=== PATIENT | male | born 1935 | race Caucasian/White ===

== ENCOUNTER 2016-05-02 07:55 | Outpatient (CLI) ==
[2015-03-19 15:30] VITALS: BMI 27.1
--- NOTE | 2016-05-02 09:29 | CT ---
EXAM: CT chest without contrast. HISTORY: Cough, chest congestion. COMPARISON: Radiograph 03/30/2015. TECHNIQUE: Multiple axial images of the chest were obtained without intravenous contrast. Images w ere reformatted in the sagittal and coronal planes. FINDINGS: Evaluation for lymphadenopathy is limited due to lack of intravenous contrast. Heart siz e is normal. Atherosclerotic calcifications present. No pericardial effusion identified. The lungs are grossly clear save for subsegmental atelectasis in the left lower lobe. No pleural ef fusion or pneumothorax identified. There is a large hiatal hernia. Gastroesophageal junction appears to be in normal position. There is no upstream dilatation. Limited images of the upper abdomen only partially included a 12.7 x 9.4 cm low density mass arising off the right kidney. Diverticuli seen in the colon. Degenerative andrade nges seen in the spine. IMPRESSION: 1. No acute abnormality of the chest. 2. Large hiatal hernia. 3. Large right renal cystic mass. Correlation with ultrasound recommended.
== END 2016-05-02 07:56 | disposition home or self-care (01) ==
LOC: RAD 07:55
PROVIDERS: ATTEND General Practice
DX: R05 Cough (principal); R06.02 Shortness of breath

== ENCOUNTER 2016-05-30 08:37 | Outpatient (CLI) ==
[2015-03-19 15:30] VITALS: BMI 27.1
[2016-05-30 09:35] LABS: BASOPHILS % (AUTO) 0.5 % (0.0-3.0); EOSINOPHILS # (AUTO) 0.2 K/ul (0.0-0.7); EOSINOPHILS % (AUTO) 5.5 % (0.0-7.0); HEMATOCRIT 37.8 % (42.0-52.0); IMMATURE GRANULOCYTE % (AUTO) 0.3 % (0.0-5.0); LYMPHOCYTES # (AUTO) 1.4 K/uL (0.60-3.4); LYMPHOCYTES % (AUTO) 34.3 (10.0-50.0); MEAN CORPUSCULAR HEMOGLOBIN 33.1 pg (27.0-31.0); MEAN CORPUSCULAR HGB CONC 34.4 (31.8-35.4); MEAN CORPUSCULAR VOLUME 96.2 fl (80.0-94.0); MONOCYTES # (AUTO) 0.3 K/uL (0.4-2.0); MONOCYTES % (AUTO) 6.8 (0-10); NEUTROPHILS # (AUTO) 2.1 K/ul (2.0-6.9); NEUTROPHILS % (AUTO) 52.6; PLATELET COUNT 142 10^3/uL (140-440); RED BLOOD COUNT 3.93 10^6/ul (4.70-6.10); WHITE BLOOD COUNT 3.99 K/ul (4.2-10.2)
[2016-05-30 09:40] LABS: BILIRUBIN,URINE Negative (NEGATIVE); KETONES,URINE Negative (NEGATIVE); LEUKOCYTE ESTERASE ,URINE Trace (NEGATIVE); NITRITE,URINE Negative (NEGATIVE); PH,URINE 5.5 (5-9); PROTEIN,URINE Negative (NEGATIVE); URINE, BLOOD Negative (NEGATIVE)
[2016-05-30 09:53] LABS: ADD URINE MICROSCOPIC YES
[2016-05-30 09:54] LABS: BACTERIA,URINE TRACE (NOT PRESENT); SPERM,URINE TRACE (NOT PRESENT)
[2016-05-30 09:56] LABS: ALBUMIN 3.7 g/dL (3.4-5.0); ALBUMIN/GLOBULIN RATIO 1.12; ANION GAP 12.3; BILIRUBIN,TOTAL 0.87 mg/dL (0.00-1.20); BUN/CREATININE RATIO 11.62; CALCIUM 9.1 mg/dL (8.2-10.2); CHOL/HDL RATIO 2.7 (4.5-6.4); CREATININE 0.86 mg/dL (0.60-1.10); POTASSIUM 4.3 mmol/L (3.5-5.1)
== END 2016-05-30 08:38 | disposition home or self-care (01) ==
LOC: LAB 08:37
PROVIDERS: ATTEND General Practice
DX: D51.9 Vitamin B12 deficiency anemia, unspecified (principal); I10 Essential (primary) hypertension; K21.9 Gastro-esophageal reflux disease without esophagitis; N40.0 Benign prostatic hyperplasia without lower urinary tract symptoms; G47.00 Insomnia, unspecified; K59.00 Constipation, unspecified; Z79.899 Other long term (current) drug therapy
CPT/HCPCS: 36415; 80053; 80061; 81001; 85025

== ENCOUNTER 2016-10-02 10:41 | Outpatient (CLI) | payer OTHER ==
[2015-03-19 15:30] VITALS: BMI 27.1
[2016-10-02 13:04] LABS: BASOPHILS % (AUTO) 0.5 % (0.0-3.0); EOSINOPHILS # (AUTO) 0.2 K/ul (0.0-0.7); EOSINOPHILS % (AUTO) 4.3 % (0.0-7.0); HEMATOCRIT 36.3 % (42.0-52.0); HEMOGLOBIN 12.4 g/dl (14.0-18.0); IMMATURE GRANULOCYTE % (AUTO) 0.2 % (0.0-5.0); LYMPHOCYTES # (AUTO) 1.6 K/uL (0.60-3.4); LYMPHOCYTES % (AUTO) 38.4 (10.0-50.0); MEAN CORPUSCULAR HEMOGLOBIN 33.9 pg (27.0-31.0); MEAN CORPUSCULAR HGB CONC 34.2 (31.8-35.4); MEAN CORPUSCULAR VOLUME 99.2 fl (80.0-94.0); MONOCYTES # (AUTO) 0.3 K/uL (0.4-2.0); NEUTROPHILS % (AUTO) 48.6; PLATELET COUNT 175 10^3/uL (140-440); RED BLOOD COUNT 3.66 10^6/ul (4.70-6.10); WHITE BLOOD COUNT 4.14 K/ul (4.2-10.2)
[2016-10-02 13:19] LABS: ALBUMIN 3.7 g/dL (3.4-5.0); ALBUMIN/GLOBULIN RATIO 1.19; ANION GAP 11.9; BILIRUBIN,TOTAL 0.97 mg/dL (0.00-1.20); BUN/CREATININE RATIO 23.25; CALCIUM 8.7 mg/dL (8.2-10.2); CHOL/HDL RATIO 2.5 (4.5-6.4); CREATININE 0.86 mg/dL (0.60-1.10); POTASSIUM 3.9 mmol/L (3.5-5.1); TOTAL PROTEIN 6.8 g/dL (5.8-8.1)
[2016-10-02 13:28] LABS: BILIRUBIN,URINE Negative (NEGATIVE); KETONES,URINE Negative (NEGATIVE); LEUKOCYTE ESTERASE ,URINE Negative (NEGATIVE); NITRITE,URINE Negative (NEGATIVE); PROTEIN,URINE Negative (NEGATIVE); URINE, BLOOD Negative (NEGATIVE)
[2016-10-02 13:33] LABS: ADD URINE MICROSCOPIC NO
== END 2016-10-02 10:42 | disposition home or self-care (01) ==
LOC: LAB 10:41
PROVIDERS: ATTEND General Practice
DX: I10 Essential (primary) hypertension (principal); N40.0 Benign prostatic hyperplasia without lower urinary tract symptoms; K21.9 Gastro-esophageal reflux disease without esophagitis; D51.9 Vitamin B12 deficiency anemia, unspecified; Z79.899 Other long term (current) drug therapy; Z12.5 Encounter for screening for malignant neoplasm of prostate
CPT/HCPCS: 36415; 80053; 80061; 81001; 85025

== ENCOUNTER 2016-11-21 06:57 | Day surgery (SDC) ==
[2015-03-19 15:30] VITALS: BMI 27.1
[2016-11-21] MEDS ORDERED: LIDOCAINE 1% 20 ML MDV ID ONE (07:15)
[2016-11-21] MEDS ORDERED: VERSED ONE (08:31)
[2016-11-21] MEDS ORDERED: LIDOCAINE HCL 2% LUER-JET ONE (08:31)
[2016-11-21] MEDS ORDERED: DIPRIVAN 20 ML VIAL IVP ONE (08:31)
[2016-11-21 10:03] VITALS: BP 129/75; TEMP 97.6
--- NOTE | 2016-11-21 14:39 | OP ---
INDICATIONS FOR PROCEDURE: This is an 81-year-old gentleman who presents for endoscopy exam. He has a worsening anemia. He has a mild anemia that is gradually getting worse. He denies any symptoms of blood loss anemia. MEDICATIONS: SEE ANESTHESIA NOTES. PROCEDURE: ENDOSCOPY, [place] DILATATION. REPORT: The risks, benefits, alternatives and limitations were discussed in detail with the patient. Informed consent was obtained. After adequate sedation was achieved, the video endoscope was introduced in the posterior pharynx and esophagus under direct vision. I easily advanced down to the second portion of the duodenum. I then slowly withdrew. The duodenal mucosa appeared unremarkable as did the duodenal bulb. The antrum and body were relatively unremarkable. The scope was retroflexed to look at the cardia and fundus which revealed a large hiatal hernia. About one-fourth of the stomach was above the diaphragmatic hiatus. The scope was anteflexed and withdrawn back in the hernia pouch, which was unremarkable. I withdrew back through the esophagus. The GE junction revealed mild stricturing. The esophagus was a little tortuous otherwise unremarkable. I advanced the scope back down the gastric lumen. I placed a guidewire. I then slowly and easily advanced a #54 [place] dilator over the guidewire. The patient tolerated the procedure well with stable vital signs and pulse oximetry throughout. IMPRESSION: 1. LARGE HIATAL HERNIA. 2. DISTAL ESOPHAGEAL STRICTURE DILATED ABOVE. 3. NOTHING TO ACCOUNT FOR HIS ANEMIA. RECOMMENDATIONS: 1. I will discuss with him about pursuing a colonoscopy examination. 2. Reflux precautions. 3. Office visit as needed otherwise. CC: DR. SHARATH TOLEDO
== END 2016-11-21 09:55 | disposition home or self-care (01) ==
LOC: SURG 06:57
PROVIDERS: ATTEND Internal Medicine Gastroenterology
DX: D64.9 Anemia, unspecified (principal); K22.2 Esophageal obstruction; K44.9 Diaphragmatic hernia without obstruction or gangrene

== ENCOUNTER 2017-01-29 12:53 | Outpatient (CLI) ==
[2015-03-19 15:30] VITALS: BMI 27.1
[2017-01-29 13:06] LABS: BASOPHILS % (AUTO) 0.5 % (0.0-3.0); EOSINOPHILS # (AUTO) 0.2 K/ul (0.0-0.7); EOSINOPHILS % (AUTO) 5.8 % (0.0-7.0); HEMATOCRIT 36.9 % (42.0-52.0); HEMOGLOBIN 12.5 g/dl (14.0-18.0); IMMATURE GRANULOCYTE % (AUTO) 0.3 % (0.0-5.0); LYMPHOCYTES # (AUTO) 1.3 K/uL (0.60-3.4); LYMPHOCYTES % (AUTO) 32.8 (10.0-50.0); MEAN CORPUSCULAR HEMOGLOBIN 33.6 pg (27.0-31.0); MEAN CORPUSCULAR HGB CONC 33.9 (31.8-35.4); MEAN CORPUSCULAR VOLUME 99.2 fl (80.0-94.0); MONOCYTES # (AUTO) 0.3 K/uL (0.4-2.0); MONOCYTES % (AUTO) 7.8 (0-10); NEUTROPHILS # (AUTO) 2.1 K/ul (2.0-6.9); NEUTROPHILS % (AUTO) 52.8; PLATELET COUNT 170 10^3/uL (140-440); RED BLOOD COUNT 3.72 10^6/ul (4.70-6.10); WHITE BLOOD COUNT 3.99 K/ul (4.2-10.2)
[2017-01-29 13:19] LABS: ALBUMIN 3.4 g/dL (3.4-5.0); ALBUMIN/GLOBULIN RATIO 1.06; ANION GAP 9.1; BILIRUBIN,TOTAL 0.95 mg/dL (0.00-1.20); BUN/CREATININE RATIO 17.02; CALCIUM 9.3 mg/dL (8.2-10.2); CHOL/HDL RATIO 2.4 (4.5-6.4); CREATININE 0.94 mg/dL (0.60-1.10); POTASSIUM 4.1 mmol/L (3.5-5.1); TOTAL PROTEIN 6.6 g/dL (5.8-8.1)
[2017-01-29 13:29] LABS: BILIRUBIN,URINE Negative (NEGATIVE); KETONES,URINE Negative (NEGATIVE); LEUKOCYTE ESTERASE ,URINE Negative (NEGATIVE); NITRITE,URINE Negative (NEGATIVE); PROTEIN,URINE Negative (NEGATIVE); URINE, BLOOD Negative (NEGATIVE)
[2017-01-29 13:33] LABS: ADD URINE MICROSCOPIC NO
== END 2017-01-29 12:54 | disposition home or self-care (01) ==
LOC: LAB 12:53
PROVIDERS: ATTEND General Practice
DX: D51.9 Vitamin B12 deficiency anemia, unspecified (principal); I10 Essential (primary) hypertension; N40.0 Benign prostatic hyperplasia without lower urinary tract symptoms; N28.89 Other specified disorders of kidney and ureter; K21.9 Gastro-esophageal reflux disease without esophagitis; G47.00 Insomnia, unspecified; J30.2 Other seasonal allergic rhinitis; K59.00 Constipation, unspecified; R25.2 Cramp and spasm
CPT/HCPCS: 36415; 80053; 80061; 81001; 82607; 85025

== ENCOUNTER 2017-02-13 08:12 | Day surgery (SDC) | payer OTHER ==
[2015-03-19 15:30] VITALS: BMI 27.1
[2017-02-13] MEDS ORDERED: ALBUTEROL 0.083% NEB NEB STA (10:39)
[2017-02-13] MEDS ORDERED: DIPRIVAN 20 ML VIAL IVP ONE (11:46)
[2017-02-13] MEDS ORDERED: VERSED ONE (11:46)
[2017-02-13 14:04] VITALS: BP 122/66; TEMP 97
--- NOTE | 2017-02-14 10:57 | OP ---
INDICATIONS FOR PROCEDURE: 82 year old gentleman presents for colonoscopy exam. He has a past history of adenomatous polyps and colonoscopy greater than three years ago. He recently was found to be anemic. He presents for colonoscopy. MEDICATIONS: SEE ANESTHESIA NOTES. PROCEDURE: COLONOSCOPY SNARE POLYPECTOMY. REPORT: The risks, benefits, alternatives and limitations were discussed in detail with the patient. Informed consent was obtained. After adequate sedation was achieved, a digital rectal exam revealed good tone, no masses. The colonoscope was introduced into the rectum and advanced under direct visual guidance to the cecum. The cecum was identified by the appendiceal orifice and IC valve. I then slowly withdrew the scope in circumferential manner and examined the mucosa quite carefully. I looked on the proximal and distal sides of the folds and flexures as best as possible. He has moderate melanosis coli throughout. In the hepatic flexure are there is a 5-6mm sessile polyp that I removed by snare technique. No other abnormalities were noted throughout the colon including on retroflex view of the anal canal. The prep was good. Withdraw time was 7 minutes and 47 seconds. The patient tolerated the procedure well with stable vital signs and pulse oximetry throughout. IMPRESSION: 1. Small polyp removed. 2. Melanosis coli RECOMMENDATIONS: 1. High fiber diet 2. Office visit as needed 3. Await polyp pathology 4. I suggest future surveillance colonoscopy on an as needed only basis. CC: Dr. Rell TOLEDO
== END 2017-02-13 13:35 | disposition home or self-care (01) ==
LOC: SURG 08:12
PROVIDERS: ATTEND Internal Medicine Gastroenterology
DX: Z09 Encounter for follow-up examination after completed treatment for conditions other than malignant neoplasm (principal); Z86.010 Personal history of colon polyps; D12.3 Benign neoplasm of transverse colon; D64.9 Anemia, unspecified; K63.89 Other specified diseases of intestine
CPT/HCPCS: 94640

== ENCOUNTER 2017-02-19 12:43 | Outpatient (CLI) ==
[2015-03-19 15:30] VITALS: BMI 27.1
[2017-02-19 12:51] LABS: BASOPHILS % (AUTO) 0.2 % (0.0-3.0); EOSINOPHILS # (AUTO) 0.2 K/ul (0.0-0.7); HEMATOCRIT 36.8 % (42.0-52.0); HEMOGLOBIN 12.6 g/dl (14.0-18.0); LYMPHOCYTES # (AUTO) 1.4 K/uL (0.60-3.4); LYMPHOCYTES % (AUTO) 33.5 (10.0-50.0); MEAN CORPUSCULAR HEMOGLOBIN 34.3 pg (27.0-31.0); MEAN CORPUSCULAR HGB CONC 34.2 (31.8-35.4); MEAN CORPUSCULAR VOLUME 100.3 fl (80.0-94.0); MONOCYTES # (AUTO) 0.4 K/uL (0.4-2.0); MONOCYTES % (AUTO) 8.8 (0-10); NEUTROPHILS # (AUTO) 2.2 K/ul (2.0-6.9); NEUTROPHILS % (AUTO) 52.5; PLATELET COUNT 172 10^3/uL (140-440); RED BLOOD COUNT 3.67 10^6/ul (4.70-6.10); WHITE BLOOD COUNT 4.21 K/ul (4.2-10.2)
[2017-02-19 12:53] LABS: BILIRUBIN,URINE Negative (NEGATIVE); KETONES,URINE Negative (NEGATIVE); LEUKOCYTE ESTERASE ,URINE Negative (NEGATIVE); NITRITE,URINE Negative (NEGATIVE); PROTEIN,URINE Negative (NEGATIVE); URINE, BLOOD Negative (NEGATIVE)
[2017-02-19 12:57] LABS: ADD URINE MICROSCOPIC NO
[2017-02-19 13:04] LABS: ALBUMIN 3.4 g/dL (3.4-5.0); ALBUMIN/GLOBULIN RATIO 1.13; ANION GAP 9.8; BILIRUBIN,TOTAL 0.7 mg/dL (0.00-1.20); BUN/CREATININE RATIO 16.66; CALCIUM 9.2 mg/dL (8.2-10.2); CHOL/HDL RATIO 2.5 (4.5-6.4); CREATININE 0.9 mg/dL (0.60-1.10); POTASSIUM 3.8 mmol/L (3.5-5.1); TOTAL PROTEIN 6.4 g/dL (5.8-8.1)
== END 2017-02-19 12:44 | disposition home or self-care (01) ==
LOC: LAB 12:43
PROVIDERS: ATTEND General Practice
DX: D51.9 Vitamin B12 deficiency anemia, unspecified (principal); I10 Essential (primary) hypertension; Z79.899 Other long term (current) drug therapy
CPT/HCPCS: 36415; 80053; 80061; 81001; 83036; 85025

== ENCOUNTER 2017-05-29 11:59 | Outpatient (CLI) ==
[2015-03-19 15:30] VITALS: BMI 27.1
== END 2017-05-29 12:00 | disposition home or self-care (01) ==
LOC: LAB 11:59
PROVIDERS: ATTEND General Practice
DX: I10 Essential (primary) hypertension (principal); Z79.899 Other long term (current) drug therapy
CPT/HCPCS: 36415; 80053; 80061; 81001; 83036; 85025

== ENCOUNTER 2017-08-21 17:23 | Outpatient (CLI) ==
[2015-03-19 15:30] VITALS: BMI 27.1
--- NOTE | 2017-08-22 07:12 | DI ---
EXAM: Four views of the left shoulder HISTORY: Left shoulder pain. COMPARISON: Right shoulder x-rays same day FINDINGS: There is no cortical irregularity or displaced fracture. There is no lytic or blastic lesi on. There is mild narrowing of the glenohumeral joint with subchondral sclerosis and minimal cystic change and osteophyte formation. The acromioclavicular joint demonstrates mild osteophyte formation. The soft tissues are normal. 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
--- NOTE | 2017-08-22 07:13 | DI ---
EXAM: Three views of the right shoulder HISTORY: Right shoulder pain. COMPARISON: Same day left shoulder x-rays FINDINGS: There is glenohumeral joint space narrowing with subchondral sclerosis and osteophyte forma tion. There is narrowing and osteophyte formation of the acromioclavicular joint. There is no displ aced fracture or dislocation of the right shoulder. There is no lytic or blastic lesion. The soft t issues are unremarkable. 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
--- NOTE | 2017-08-22 07:16 | DI ---
EXAM: Six views of the cervical spine HISTORY: Cervicalgia. COMPARISON: None FINDINGS: There is no acute compression fracture. There is straightening of the cervical spine. The re is no subluxation. There is fusion of the vertebral bodies C5 and C6. There is narrowing at C4-C 5 and C6-C7. There is moderate facet arthropathy. There is no lytic or blastic lesion. There is fa cet narrowing bilaterally at C2-C3 and C3-C4. The odontoid process is poorly visualized. 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 There is straightening and vertebral body fusion at C5 and C6.
== END 2017-08-21 17:24 | disposition home or self-care (01) ==
LOC: RAD 17:23
PROVIDERS: ATTEND General Practice
DX: M54.2 Cervicalgia (principal); M25.511 Pain in right shoulder

== ENCOUNTER 2017-09-28 10:31 | Outpatient (CLI) ==
[2015-03-19 15:30] VITALS: BMI 27.1
== END 2017-09-28 10:32 | disposition home or self-care (01) ==
LOC: FCC-LAB 10:31
PROVIDERS: ATTEND General Practice
DX: D51.9 Vitamin B12 deficiency anemia, unspecified (principal); I10 Essential (primary) hypertension; N40.0 Benign prostatic hyperplasia without lower urinary tract symptoms; K21.9 Gastro-esophageal reflux disease without esophagitis; Z79.899 Other long term (current) drug therapy
CPT/HCPCS: 36415; 80053; 80061; 81001; 85025

== ENCOUNTER 2018-01-09 13:03 | Outpatient (CLI) ==
[2015-03-19 15:30] VITALS: BMI 27.1
== END 2018-01-09 13:04 | disposition home or self-care (01) ==
LOC: FCC-LAB 13:03
PROVIDERS: ATTEND General Practice
DX: N40.0 Benign prostatic hyperplasia without lower urinary tract symptoms (principal); K21.9 Gastro-esophageal reflux disease without esophagitis; I10 Essential (primary) hypertension; Z79.899 Other long term (current) drug therapy; Z12.5 Encounter for screening for malignant neoplasm of prostate
CPT/HCPCS: 36415; 80053; 80061; 81001; 85025

== ENCOUNTER 2018-03-11 13:25 | Outpatient (CLI) | payer OTHER ==
[2015-03-19 15:30] VITALS: BMI 27.1
== END 2018-03-11 13:26 | disposition home or self-care (01) ==
LOC: RHC-LAB 13:25
PROVIDERS: ATTEND General Practice
DX: R05 Cough (principal)
CPT/HCPCS: 87502; 87651

== ENCOUNTER 2018-05-09 07:50 | Outpatient (CLI) ==
[2015-03-19 15:30] VITALS: BMI 27.1
== END 2018-05-09 07:51 | disposition home or self-care (01) ==
LOC: RHC-LAB 07:50
PROVIDERS: ATTEND General Practice
DX: I10 Essential (primary) hypertension (principal); K21.9 Gastro-esophageal reflux disease without esophagitis; N40.0 Benign prostatic hyperplasia without lower urinary tract symptoms; D51.9 Vitamin B12 deficiency anemia, unspecified; N28.89 Other specified disorders of kidney and ureter; M15.9 Polyosteoarthritis, unspecified; Z79.899 Other long term (current) drug therapy
CPT/HCPCS: 36415; 80053; 80061; 81001; 85025

== ENCOUNTER 2018-05-23 06:58 | Outpatient (CLI) | payer OTHER ==
[2015-03-19 15:30] VITALS: BMI 27.1
--- NOTE | 2018-05-23 09:08 | MRI ---
EXAM: MRI right shoulder without contrast. HISTORY: Right shoulder pain. Bilateral shoulder pain. Decreased range of motion. No right should er surgery reported.. TECHNIQUE: Using a local coil on a high field strength magnet multiplanar multisequence MRI was atte mpted of the right shoulder without intravenous or intra-articular gadolinium contrast. Examination of limited diagnostic quality secondary to motion degradation as well as decreased [id number] solution.. COMPARISON: Three-view plain film examination right shoulder 08/21/2017. FINDINGS: Os acromiale. Degenerative arthrosis over the synchondrosis. Degenerative guide changer th e articulation of the distal right clavicle and acromion with intervening effusion. Capsular/ligamen tous hypertrophy. Mass effect upon the bursal sided fibers of the supraspinatus muscle/tendon at the level of the shoulder outlet. Correlate clinically for impingement. There is remodeling with some erosive change along the undersurface of the acromion as well. Coracoacromial ligament/arch intact w ith thickening. Fatty infiltration deltoid muscle. Free fluid throughout the subacromial/subdeltoid space. Muscle bulk of the rotator cuff shows fatty infiltration with relative atrophy. There is marked diff use supraspinatus tendinosis over the insertion and critical zone. No fluid-filled tear however ther e is suspicion for at least articular sided partial thickness tearing to the supraspinatus portion of the cuff at the insertion/critical zone. Some bursal sided fraying. Posterior there is diffuse inf raspinatus tendinosis as well with some trace rim rent tearing. Underlying degenerative cyst formati on posterior right humeral head. Posterior inferior intact teres minor tendon fibers. Anterior inta ct subscapularis tendon fibers with tendinosis. The long head of the biceps tendon shows intact fibe rs along the proximal extraarticular bicipital groove. Diffuse proximal long head biceps tendinosis with some intra-articular partial thickness tearing. Complex bicipital tenosynovitis. The right humeral head is seated. The right glenoid face shows some retroversion. Hypoplastic/dyspl astic posterior inferior right glenoid. Right humeral head subluxed posteriorly. Markedly severe en d-stage right glenohumeral joint osteoarthrosis. Near [id number] appearance. Joint centered subch ondral bone marrow edema/remodeling/cyst formation. Marginal osteophyte formation. Associated degen erative tearing of the right glenoid labrum suspected. Right glenohumeral joint effusion. Synovitis .. IMPRESSION: Os acromiale. Degenerative arthrosis over the synchondrosis as well as degenerative andrade nge over the articulation of the distal right clavicle and acromion with intervening effusion. Capsu lar/ligamentous hypertrophy with mass effect upon the bursal sided fibers of the supraspinatus muscle /tendon at the level of the shoulder outlet. Correlate clinically for impingement. Some erosive andrade nge along the undersurface of the acromion as well. Thickening of the coracoacromial ligament/arch. Rotator cuff muscle bulk fatty infiltration with relative atrophy. Marked diffuse supraspinatus tend inosis. Some bursal sided fraying. Poorly characterized suspicion for at least articular sided part ial thickness tearing to the supraspinatus portion of the cuff at the insertion/critical zone. Free fluid throughout the subacromial/subdeltoid space may reflect an overlying degree bursitis and/or be sequelae of prior shoulder injection. Correlate clinically. Diffuse infraspinatus tendinosis with trace rim rent tearing. Subscapularis tendinosis with intact fibers. Intact long head biceps tendon fibers. Diffuse proxima l long head biceps tendinosis. Intra-articular partial thickness tearing. Complex bicipital tenosyn ovitis. Retroverted right glenoid. Hypoplastic/dysplastic posterior inferior right glenoid. Right humeral h ead subluxed posteriorly. Markedly severe end-stage right glenohumeral joint osteoarthrosis. Associ ated degenerative tearing of the right glenoid labrum suspected. Right glenohumeral joint effusion. Synovitis.
== END 2018-05-23 06:59 | disposition home or self-care (01) ==
LOC: RAD 06:58
PROVIDERS: ATTEND General Practice
DX: M25.511 Pain in right shoulder (principal)
CPT/HCPCS: 73221

== ENCOUNTER 2018-08-19 08:13 | Outpatient (CLI) ==
[2015-03-19 15:30] VITALS: BMI 27.1
== END 2018-08-19 08:14 | disposition home or self-care (01) ==
LOC: RHC-LAB 08:13
PROVIDERS: ATTEND General Practice
DX: I10 Essential (primary) hypertension (principal); F41.9 Anxiety disorder, unspecified; K21.9 Gastro-esophageal reflux disease without esophagitis; N40.0 Benign prostatic hyperplasia without lower urinary tract symptoms; D51.9 Vitamin B12 deficiency anemia, unspecified; M15.9 Polyosteoarthritis, unspecified; Z79.899 Other long term (current) drug therapy
CPT/HCPCS: 36415; 80053; 80061; 81001; 85025; 87086

== ENCOUNTER 2018-08-22 12:40 | Outpatient (CLI) | payer OTHER ==
[2015-03-19 15:30] VITALS: BMI 27.1
== END 2018-08-22 12:41 | disposition home or self-care (01) ==
LOC: RHC-LAB 12:40
PROVIDERS: ATTEND General Practice
DX: R82.90 Unspecified abnormal findings in urine (principal)
CPT/HCPCS: 81001; 87086

== ENCOUNTER 2018-08-27 13:30 | Outpatient (CLI) | payer OTHER ==
[2015-03-19 15:30] VITALS: BMI 27.1
== END 2018-08-27 13:31 | disposition home or self-care (01) ==
LOC: RHC-LAB 13:30
PROVIDERS: ATTEND General Practice
DX: R35.0 Frequency of micturition (principal)
CPT/HCPCS: 81001; 87086

== ENCOUNTER 2018-09-02 16:24 | Outpatient (CLI) | payer OTHER ==
[2015-03-19 15:30] VITALS: BMI 27.1
== END 2018-09-02 16:25 | disposition home or self-care (01) ==
LOC: RHC-LAB 16:24
PROVIDERS: ATTEND General Practice
DX: D51.9 Vitamin B12 deficiency anemia, unspecified (principal); Z79.899 Other long term (current) drug therapy; I10 Essential (primary) hypertension
CPT/HCPCS: 81001

== ENCOUNTER 2018-12-13 15:00 | Outpatient (RCR) | payer OTHER ==
[2015-03-19 15:30] VITALS: BMI 27.1
--- NOTE | 2018-11-29 11:35 | RS.OPPTEV2 ---
Date of Note: 11/28/18 Visit #: 1 Number of visits approved by Insurance: n/a Date of Evaluation: 11/28/18 Payer Source: MEDICARE Surgery Performed?: No Treatment Diagnosis: Bilateral shoulder pain History of Condition/Mechanism of Injury:: Pain began in Apr 2018. No definite injury noted. pt did see chiropractor without good results. 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 States when he is sitting still he does not have pain. He is concerned about whether or not PT will help. Treatment Side (optional): Bilateral *Precautions: n/a Medical History Medical History: Hypertension, Arthritis Smoking Status: Never smoker Hx Home Medications: pt did not bring med list. Patient's Goals: pt would like to decrease shld pain Pain Assessment - Pain Description Pain Location: B shld Pain Description: Sharp, Aching Current Pain Intensity: 0 at rest with ROM increases 7/10 Functional Outcome Measure UE Functional Index: 49 - G Codes & Severity Modifier G Codes & Modifier: n/a Source of G Code score: n/a Observation - Observation Posture: Forward Head, Rounded Shoulders, Increased Thoracic Kyphosis Gait - Gait Pattern General Gait Pattern Observation: No Deviations/Normal General Range of Motion: BLE WFL's. BUE elbow, wrist and hand WFL's see shld eval Muscle Strength: BLE 5/5. BUE elbow flex/ext 4+/5, - Left Shoulder ROM Left Shoulder Flexion: 104 Left Shoulder Abduction: 62 - Right Shoulder ROM Right Shoulder Flexion: 118 Right Shoulder Abduction: 58 - Left Shoulder Strength Left Shoulder Flexion: 3- Fair- Left Shoulder Extension: 3 Fair Left Shoulder Abduction: 3- Fair- Left Shoulder External Rotation: 3 Fair Left Shoulder Internal Rotation: 3 Fair - Right Shoulder Strength Right Shoulder Flexion: 3- Fair- Right Shoulder Extension: 3- Fair- Right Shoulder Abduction: 3- Fair- Right Shoulder External Rotation: 3 Fair Right Shoulder Internal Rotation: 3 Fair - Special Tests Shoulder Empty Can (Supraspinatus) Test: Negative Right, Positive Left Shoulder Speed's Sign Test: Negative Left, Negative Right Shoulder Rabago-Bk Impingement Test: Negative Right, Positive Left Palpation Palpation Findings: Tenderness Comments:: mild tenderness noted at area of AC joint B UE Sensation - Sensation Right Upper Extremity: Intact/Normal Left Upper Extremity: Intact/Normal Right Lower Extremity: Intact/Normal Left Lower Extremity: Intact/Normal Balance - Sitting Balance Static Sitting Balance: Normal Dynamic Sitting Balance: Normal - Standing Balance Static Standing Balance: Normal Dynamic Standing Balance: Normal Interventions - Exercise/Activities/Manual Therapy Exercises/Activities: pt performed shld shrugs, retraction, isometric shld flex , abd, add, and ext. Manual Therapy: n/a HOME EXERCISE PROGRAM: pt given written HEP including: isometric shld flex, abd , add, ext and shld shrugs and retraction. - Charges Timed Code Treatment Minutes: 49 Total Treatment Time: 58 Procedures billed for this date of service:: jimmie caceres, ex EVALUATION COMPLEXITY LEVEL EVALUATION COMPLEXITY LEVEL: HISTORY: Low, EXAM OF BODY SYSTEMS: Low, CLINICAL PRESENTATION: Low, CLINICAL DECISION MAKING: Low Assessment Assessment: pt presents with pain in B shld with ROM. pt with limited strength and ROM B shlds. pt with crepitus noted with ROM. pt with signs of possible impingement on LUE. Feel pt would benefit from skilled PT for therex for UE ROM and strengthening. Patient Education: Home Exercise Program, Education of Plan of Care Rehab Potential: Good Short Term Goals Goal #1: pt independent with initial HEP Goal to be met by: 12/19/18 Goal #2: Decrease pain in B shlds < 4/10 with ROM Goal to be met by: 12/19/18 Goal #3: Improve postural awareness Goal to be met by: 12/19/18 Goal #4: Improve AROM B shld flex 100, abd 60 Goal to be met by: 12/19/18 Owner Goals Goal #1: Report increased ability to perform normal household activities w less pain Goal to be met by: 01/09/19 Goal #2: pt report pain < 3/10 with ROM Goal to be met by: 01/09/19 Goal #3: pt with increased B shld ROM WFL's with less pain Goal to be met by: 01/09/19 Plan - Treatment to be Provided Procedures: Therapeutic Exercises, Therapeutic Activity, Manual Therapy, Patient Education Modalities: Electrical Stimulation, Ultrasound/Phonophoresis, Cryotherapy, Hot Packs - Treatment Plan Frequency: 2 X week Duration: 6 weeks Dates of Assisted Goals: 01/09/19 Expiration date of current Insurance Approval:: 01/09/19 - Treatment Code (1) Bilateral shoulder pain Code(s): M25.511 - PAIN IN RIGHT SHOULDER Qualifiers: Chronicity: unspecified Qualified Code(s): M25.511 - Pain in right shoulder ; M25.512 - Pain in left shoulder (2) Joint stiffness of both shoulders Code(s): M25.611 - STIFFNESS OF RIGHT SHOULDER, NOT ELSEWHERE CLASSIFIED; M25.612 - STIFFNESS OF LEFT SHOULDER, NOT ELSEWHERE CLASSIFIED (3) Muscle weakness Code(s): M62.81 - MUSCLE WEAKNESS (GENERALIZED)
--- NOTE | 2018-11-29 15:46 | RS.OPPTDN ---
Subjective Date of Note: 11/29/18 Visit #: 2 Number of visits approved by Insurance: na Date of Evaluation: 11/28/18 Payer Source: MEDICARE Treatment Diagnosis: Bilateral shoulder pain Current Subjective/complaints:: Patient reports no pain at rest, but pain in bilateral shoulder joints with active reaching at or above approx 75 deg flexion. States he feels better following treatment and has more flexibility in shoulder joints. *Precautions: n/a Pain Assessment - Pain Description Pain Location: Bilateral shoulders Pain Description: Sharp, Aching Current Pain Intensity: right shoulder 4/10, left 6/10 with active reaching - Treatment Modality: Ultrasound Parameters/Method Applied: [id number] total. 7mins to each shoulder joint at 1.5w/ cm2. Patient Position: Sitting - Heat/Cryotherapy Treatment: Hot Pack ([id number] to bilateral shoulders prior to US and EX. Patient in supine. ) Interventions - Exercise/Activities/Manual Therapy Exercises/Activities: pt performed shld shrugs, retraction, isometric shld flex , abd, add, and ext. Active reaching while holding ball. Wall walking at finger ladder and overhead pulleys. Total minutes of Exercise: 15mins Manual Therapy: n/a HOME EXERCISE PROGRAM: pt given written HEP including: isometric shld flex, abd , add, ext and shld shrugs and retraction. - Charges Timed Code Treatment Minutes: 29mins Total Treatment Time: 52mins Procedures billed for this date of service:: HP, US, EX Assessment: Patient responds well to treatment with report od decreased pain and increased flexibility. Patient Education: Home Exercise Program Patient demonstrates compliance with HEP?: Yes Short Term Goals Goal #1: pt independent with initial HEP Goal to be met by: 12/19/18 Progress towards Goal:: Progressing Goal #2: Decrease pain in B shlds < 4/10 with ROM Goal to be met by: 12/19/18 Progress towards Goal:: Progressing Goal #3: Improve postural awareness Goal to be met by: 12/19/18 Goal #4: Improve AROM B shld flex 100, abd 60 Goal to be met by: 12/19/18 Back Up Worker Goals Goal #1: Report increased ability to perform normal household activities w less pain Goal to be met by: 01/09/19 Goal #2: pt report pain < 3/10 with ROM Goal to be met by: 01/09/19 Goal #3: pt with increased B shld ROM WFL's with less pain Goal to be met by: 01/09/19 Plan Dates of Back Up Worker Goals: 01/09/19 Expiration date of current Insurance Approval:: 01/09/19 PLAN: Continue modalities and progress exercise to increase functional activity level.
--- NOTE | 2018-12-02 16:20 | RS.OPPTDN ---
Subjective Date of Note: 12/02/18 Visit #: 3 Number of visits approved by Insurance: Reassess at 10 Date of Evaluation: 11/28/18 Payer Source: MEDICARE Treatment Diagnosis: Bilateral shoulder pain Current Subjective/complaints:: Patient says his shoulders are more sore today due to prolonged driving. States the treatment at previous session helped him. Says the L shoulder seems worse at times than the R, but they hurt the most with closing his car door. *Precautions: n/a - Treatment Modality: Ultrasound Parameters/Method Applied: continuous @ 1.5 w/cm2 x 8 mins each Patient Position: Sitting - Heat/Cryotherapy Treatment: Hot Pack (15 mins to bilateral shoulders in sitting) Interventions - Exercise/Activities/Manual Therapy Exercises/Activities: pt performed shld shrugs, retraction, isometric shld flex , abd, add, and ext. 2x5. 1# wand for bilateral shoulder flexion to ~80 degrees. Active reaching while holding ball. Continued with shoulder pulleys for bilateral shoulder flexion. Total minutes of Exercise: 18 Manual Therapy: n/a HOME EXERCISE PROGRAM: pt given written HEP including: isometric shld flex, abd , add, ext and shld shrugs and retraction. - Charges Timed Code Treatment Minutes: 35 Total Treatment Time: 50 Procedures billed for this date of service:: hp, ex, u/s Assessment: Patient presents with increased L shoulder pain compared to R, but aggravated by prolonged driving today and closing his car door. He demo repetitive crepitus to the L shoulder during active shoulder flexion and presents with increased pain beyond ~80 degrees. R UE appears to isabella AA shoulder flexion to ~100-105 degrees today with pulleys. Patient admits relief of stiffness and pain following treatment today. Patient Education: Education of diagnosis, Body/Joint mechanics, Home Exercise Program Patient demonstrates compliance with HEP?: Yes Short Term Goals Goal #1: pt independent with initial HEP Goal to be met by: 12/19/18 Progress towards Goal:: Progressing Goal #2: Decrease pain in B shlds < 4/10 with ROM Goal to be met by: 12/19/18 Progress towards Goal:: Progressing Goal #3: Improve postural awareness Goal to be met by: 12/19/18 Goal #4: Improve AROM B shld flex 100, abd 60 Goal to be met by: 12/19/18 Datacap Developer Goals Goal #1: Report increased ability to perform normal household activities w less pain Goal to be met by: 01/09/19 Goal #2: pt report pain < 3/10 with ROM Goal to be met by: 01/09/19 Goal #3: pt with increased B shld ROM WFL's with less pain Goal to be met by: 01/09/19 Plan Dates of Penitentiary Goals: 01/09/19 Expiration date of current Insurance Approval:: 01/09/19 PLAN: Continue BIW for pain relief to bilateral shoulder joints and therex to improve stability.
--- NOTE | 2018-12-06 11:32 | RS.OPPTDN ---
Subjective Date of Note: 12/06/18 Visit #: 4 Number of visits approved by Insurance: na Date of Evaluation: 11/28/18 Payer Source: MEDICARE Treatment Diagnosis: Bilateral shoulder pain Current Subjective/complaints:: Patient reports he continues to have pain when reaching out and away from his body, such as reaching for car door. States he has reduced pain and increase movement following treatment today. States he will continue gentle HEP and use heat at home. *Precautions: n/a Pain Assessment - Pain Description Pain Location: bilateral shoulder joints Pain Description: Tightness, Sharp, Aching Current Pain Intensity: 5-6/10 with reaching, no pain at rest - Treatment Modality: Ultrasound Parameters/Method Applied: 16mins total. US at 1.5w/cm2 x 8mins to each shoulder joint prior to EX. Patient Position: Sitting - Heat/Cryotherapy Treatment: Hot Pack ([id number] to bilateral shoulder joints prior to US and EX. Patient in sitting. ) Interventions - Exercise/Activities/Manual Therapy Exercises/Activities: PROM of bilateral shoulders into flexion and abduction. Shld shrugs, retraction. Isometric shld abd, add, and extension 3s/5reps. Active assist reaching into flexion and scaption. Discussion of home care, wall walking, and use of shoulder pulleys. Also rest, gentle stretch, and use of heat to manage pain. Total minutes of Exercise: 14mins Manual Therapy: n/a HOME EXERCISE PROGRAM: pt given written HEP including: isometric shld flex, abd , add, ext and shld shrugs and retraction. - Objective Findings Observations,measurements,etc.: Active left shoulder flexion 128-130 degrees, right shoulder flexion to 135 degrees. Reports a painful end-feel. - Charges Timed Code Treatment Minutes: 30mins Total Treatment Time: 55mins Procedures billed for this date of service:: HP, US, EX Assessment: Pt progressing with active reaching and reporting a reduction of pain with treatment. Patient Education: Body/Joint mechanics, Home Exercise Program, Activity Modification Patient demonstrates compliance with HEP?: Yes Short Term Goals Goal #1: pt independent with initial HEP Goal to be met by: 12/19/18 Progress towards Goal:: Progressing Goal #2: Decrease pain in B shlds < 4/10 with ROM Goal to be met by: 12/19/18 Progress towards Goal:: Progressing Goal #3: Improve postural awareness Goal to be met by: 12/19/18 Progress towards Goal:: Progressing Goal #4: Improve AROM B shld flex 100, abd 60 Goal to be met by: 12/19/18 Manager Research Goals Goal #1: Report increased ability to perform normal household activities w less pain Goal to be met by: 01/09/19 Goal #2: pt report pain < 3/10 with ROM Goal to be met by: 01/09/19 Goal #3: pt with increased B shld ROM WFL's with less pain Goal to be met by: 01/09/19 Plan Dates of Manager Research Goals: 01/09/19 Expiration date of current Insurance Approval:: 01/09/19 PLAN: Continue modalities and progress exercise to reduce pain and increase functional activity level.
--- NOTE | 2018-12-09 16:28 | RS.OPPTDN ---
Subjective Date of Note: 12/09/18 Visit #: 5 Number of visits approved by Insurance: Reassess at 10th Date of Evaluation: 11/28/18 Payer Source: MEDICARE Treatment Diagnosis: Bilateral shoulder pain Current Subjective/complaints:: Patient states his pain may be slightly less, but maintains pain with reaching out. States only reaching back bothers him. Reports he is working on HEP as much as he can. *Precautions: n/a - Treatment Modality: Ultrasound Parameters/Method Applied: continuous @ 1.5 w/cm2 x 8 mins each shoulder joint posteriorally and along mid deltoid Patient Position: Sitting - Heat/Cryotherapy Treatment: Hot Pack (bilateral shoulders x 15 mins sitting) Interventions - Exercise/Activities/Manual Therapy Exercises/Activities: PROM of bilateral shoulders into flexion, limited ER/IR, and abduction. Shld shrugs, retraction. Isometric shld abd, add, and extension 3s/5reps. Manual isometrics for IR/ER also 2x5. Reviewed HEP and posture. Total minutes of Exercise: 22 Manual Therapy: n/a HOME EXERCISE PROGRAM: pt given written HEP including: isometric shld flex, abd , add, ext and shld shrugs and retraction. - Charges Timed Code Treatment Minutes: 32 Total Treatment Time: 52 Procedures billed for this date of service:: hp, u/s, ex Assessment: Patient continues to have similar moderate pain only during reaching back or with closing the door using the L arm once in his car. Once he moves out of this direction, pain quickly disappears. He maintains constant crepitus and clunking with AA shoulder scaption and ABD, also occurs with ER but not as significant. Patient Education: Education of diagnosis, Body/Joint mechanics, Home Exercise Program Patient demonstrates compliance with HEP?: Yes Short Term Goals Goal #1: pt independent with initial HEP Goal to be met by: 12/19/18 Progress towards Goal:: Progressing Goal #2: Decrease pain in B shlds < 4/10 with ROM Goal to be met by: 12/19/18 Progress towards Goal:: Progressing Goal #3: Improve postural awareness Goal to be met by: 12/19/18 Progress towards Goal:: Progressing Goal #4: Improve AROM B shld flex 100, abd 60 Goal to be met by: 12/19/18 Progress towards Goal:: Progressing (limited by pain and constant clunking) Director Cpg Goals Goal #1: Report increased ability to perform normal household activities w less pain Goal to be met by: 01/09/19 Goal #2: pt report pain < 3/10 with ROM Goal to be met by: 01/09/19 Goal #3: pt with increased B shld ROM WFL's with less pain Goal to be met by: 01/09/19 Plan Dates of Director Cpg Goals: 01/09/19 Expiration date of current Insurance Approval:: 01/09/19 PLAN: Continue for modalities and therex to bilateral shoulders to reduce pain with functional activities assoc with STG/LTG.
--- NOTE | 2018-12-13 16:53 | RS.OPPTDN ---
Subjective Date of Note: 12/13/18 Visit #: 6 Number of visits approved by Insurance: na Date of Evaluation: 11/28/18 Payer Source: MEDICARE Treatment Diagnosis: Bilateral shoulder pain Current Subjective/complaints:: Patient reports slight improvement in pain with UE side reaching (abduction). He states modalities help reduce pain intensity but that is temporary. States he will continue basic HEP and follow up with physician concerning other treatment options for his pain. *Precautions: n/a Pain Assessment - Pain Description Pain Location: B shoulders Pain Description: Sharp, Aching Current Pain Intensity: mod+ with reaching. Other Comments regarding Pain:: No pain at rest, but pain with reaching limits his activity level. - Treatment Modality: Ultrasound Parameters/Method Applied: 16mins total. US at 1.5w/cm2, 8mins to each shoulder joint prior to EX. Patient in sitting. Patient Position: Sitting - Heat/Cryotherapy Treatment: Hot Pack ([id number] to bilateral shoulders prior to US and EX. Patient in sitting. ) Interventions - Exercise/Activities/Manual Therapy Exercises/Activities: PROM of bilateral shoulders into flexion and abduction. Shoulder shrugs, retraction. Isometric shld add and extension with pillow. Yellow theraband for scap retraction. Reviewed HEP and patient given yellow and red theraband. Total minutes of Exercise: 12mins Manual Therapy: n/a HOME EXERCISE PROGRAM: pt given written HEP including: isometric shld flex, abd , add, ext and shld shrugs and retraction. Wall walking, yellow theraband resisted scap retraction. - Objective Findings Observations,measurements,etc.: Paitent only increases UE Functional Index Scale by 2 points to 51/80 or 36.25% deficit (was 49/80 on Eval). Active ROM is essentially unchanged. - Charges Timed Code Treatment Minutes: 28mins Total Treatment Time: 48mins Procedures billed for this date of service:: HP, US, EX Assessment: Patient did met 2 treatment goals, but continued to be limited due to bilateral shouluder pain. He is independent with and will continue HEP. Patient Education: Body/Joint mechanics, Home Exercise Program, Home Safety, Activity Modification, Education of Plan of Care Comments: Reviewed and finalized all patient education and HEP. Pateint given additional therabands for short range postural strengthening. 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 Patient to continue conservative HEP and follow up with physician.
--- NOTE | 2018-12-20 14:19 | RS.OPPTDC ---
Date of Discharge: 12/13/18 Date of Evaluation: 11/28/18 Number of Visits: 6 Treatment Diagnosis: Bilateral shoulder pain Current Level of Function: AAROM L shld flex 128-130, EVELINOM R shld flex 135. L shld MMT 3- to 3/5, R shld MMT 3- to 3/5. pt with only slight improvement with pain. UE functional scale 51/80, upon eval was 48/80 Current Complaints/Gains: pt reports slight improvement in pain with reaching. pt states he is working on HEP as instructed. No specific improvement reported with functional act. Reports slight improvement with pushing up from chair and grooming. Functional Outcome Measure UE Functional Index: 51 - G Codes & Severity Modifier G Codes & Modifier: n/a Source of G Code score: n/a Interventions - Exercise/Activities/Manual Therapy Exercises/Activities: n/a Manual Therapy: n/a HOME EXERCISE PROGRAM: pt given written HEP including: isometric shld flex, abd , add, ext and shld shrugs and retraction. Wall walking, yellow theraband resisted scap retraction. - Charges Timed Code Treatment Minutes: n/a Total Treatment Time: n/a Procedures billed for this date of service:: n/a Assessment Assessment: pt has met STG 1, 3. pt did not meet remaining goals due to only with min progress. pt continues to be significantly limited due to pain as well as strength. pt also with limited ROM and posture. Patient Education: Home Exercise Program, Activity Modification, Education of Plan of Care Rehab Potential: Good Short Term Goals Goal #1: pt independent with initial HEP Goal to be met by: 12/19/18 Progress towards Goal:: Met Goal #2: Decrease pain in B shlds < 4/10 with ROM Goal to be met by: 12/19/18 Progress towards Goal:: Not Met Goal #3: Improve postural awareness Goal to be met by: 12/19/18 Progress towards Goal:: Met Goal #4: Improve AROM B shld flex 100, abd 60 Goal to be met by: 12/19/18 Progress towards Goal:: Progressing (limited by pain and constant clunking, active assisted motion slightly improved) Longterm Goals Goal #1: Report increased ability to perform normal household activities w less pain Goal to be met by: 01/09/19 Progress towards goal: No Change Goal #2: pt report pain < 3/10 with ROM Goal to be met by: 01/09/19 Progress towards goal: Not Met Goal #3: pt with increased B shld ROM WFL's with less pain Goal to be met by: 01/09/19 Progress towards goal: Not Met Plan Reason for Discharge:: Lack of Progress
== END 2018-12-21 23:59 ==
PROVIDERS: ATTEND General Practice
DX: M25.511 Pain in right shoulder (principal); M25.512 Pain in left shoulder

== ENCOUNTER 2018-12-26 08:15 | Outpatient (CLI) | payer OTHER ==
[2016-05-02 08:02] VITALS: BMI 27.1
== END 2018-12-26 08:16 | disposition home or self-care (01) ==
LOC: RHC-LAB 08:15
PROVIDERS: ATTEND General Practice
DX: D51.9 Vitamin B12 deficiency anemia, unspecified (principal); I10 Essential (primary) hypertension; Z79.899 Other long term (current) drug therapy
CPT/HCPCS: 36415; 80053; 80061; 81001; 85025; 87086; 87186

== ENCOUNTER 2021-11-10 11:15 | Inpatient (IN) ==
[2021-11-10] MEDS ORDERED: MORPHINE 2 MG/ML SYRINGE IVP ONE (11:42)
[2021-11-10] MEDS ORDERED: CATAPRES PO ONE (11:42)
[2021-11-10] MEDS ORDERED: GI COCKTAIL PO ONE (11:42)
[2021-11-10] MEDS ORDERED: ASPIRIN CHEWABLE PO STA (11:42)
[2021-11-10] MEDS ORDERED: ZOFRAN 4 MG/2 ML IVP ONE (11:42)
--- NOTE | 2021-11-10 11:49 | ED.PDOC ---
General ED Provider: Dr. RUPESH PALMA MD Chief Complaint: Chest Pain Stated Complaint: mild anterior chest pain tightness today nonrad while eating, gone now, but now LLQ cramping, +nausea, no emesis, no fever, no injury, no rash, not short of breath Time Seen by Provider: 11/10/21 11:36 Mode of Arrival: Wheelchair Information Source: Patient Primary Care Provider: ANDREW PEREA MD Nursing and Triage Documentation Reviewed and Agree: Yes Does patient meet sepsis criteria?: No System Inflammatory Response Syndrome: Not Applicable Sepsis Protocol: For patient's 13 years and over: Temp is 96.8 and below OR 101 and greater Pulse >90 BPM Resp >20/minute Acutely Altered Mental Status Are patient's symptoms suggestive of a new infection, such as: -Pneumonia -Skin, Soft Tissue -Endocarditis -UTI -Bone, Joint Infection -Implantable Device -Acute Abdominal Infection -Wound Infection -Meningitis -Blood Stream Catheter Infection -Unknown Review of Systems Review Of Systems Constitutional: Denies Fever or Malaise Eyes: Denies Vision change Ears, Nose, Mouth, Throat: Denies Throat pain Respiratory: Denies Short of air Cardiac: Reports Chest pain GI: Reports Abdominal pain and Nausea; Denies Vomiting : Denies Dysuria Musculoskeletal: Denies Back pain or Neck pain Skin: Denies Rash or Cyanosis Neurological: Denies Cognitive dysfunction All Other Systems: Other [facility] Medical History (Updated 11/10/21 @ 14:10 by RUPESH PALMA MD) Anemia BPH (benign prostatic hyperplasia) Cyst, kidney, acquired Enlarged prostate Hypertension Vitamin B12 deficiency Social History Smoking and tobacco status: Never smoker Alcohol intake: never Substance use type: does not use Yvrose/judaism: ROMAN CATHOLIC Special yvrose needs: No Agree to transfusion: Yes Adopted: No Caregiver/support person: No Foster care: No Household members: none Housing: house Marital status: W / Lives independently: Yes Number of children: 3 Number of grandchildren: 4 Financial difficulty paying for basics: not very hard service: No long-term: No Current occupational status: retired 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[address]) Current occupational exposures/hazards: No Pets and animals: No Leisure activites: volunteer work History of recent travel: No Sexually active: No Do you think of yourself as: straight/heterosexual Current gender identity: male Seatbelt use: always Helmet use: No Drives intoxicated or rides with intoxicated dump truck driver off highway: No Water heater temperature set < 120 degrees: Yes Working smoke detector in home: Yes Fire extinguisher in home: No Carbon monoxide detector in home: Yes Firearms in home: Yes Firearms unloaded and locked: Yes Surgical History Status post hernia repair Physical Exam Physical Exam Appearance: Reports Well-appearing Ill-appearing: None Pain Distress: Mild Eyes: Reports MELISSA, EOMI and Conjunctiva clear ENT: Reports Oropharynx normal Neck: Supple Respiratory: Reports Airway patent and Breath sounds clear Cardiovascular: Reports RRR GI/: Reports Soft and Tender (no rebound) Musculoskeletal: Reports ROM intact and Edema Skin: Reports Warm and Dry Neurological: Reports Alert and Oriented Psychiatric: Reports Affect appropriate Interpretation Radiology Interpretation Radiology Interpretation By: Radiologist Radiology Results: No acute changes Exam Interpreted: CXR Radiology Interpretation By: Radiologist Exam Interpreted: CT Scan Xray Comments: distended urine bladder and mild hydronephrosis EKG Interpretation Time of EKG #1: 14:08 Rate: Tachy Rhythm: Sinus Interpretation: rbbb, no stemi Critical Care Note Critical Care Note Total Critical Care Time (mins): 0 Course Course Hematology/Chemistry: 11/10/21 11:50 11/10/21 11:50 Orders, Labs, Meds: Lab Review 11/10/21 11/10/21 11/10/21 11:50 11:50 11:50 WBC 4.39 RBC 4.08 L Hgb 13.5 L Hct 39.6 L MCV 97.1 H MCH 33.1 H MCHC 34.1 RDW Coeff of Ray 13.4 Plt Count 160 Immature Gran % (Auto) 0.5 Neut % (Auto) 50.7 Lymph % (Auto) 39.0 [place] % (Auto) 7.5 Eos % (Auto) 2.1 Baso % (Auto) 0.2 Neut # (Auto) 2.2 Lymph # (Auto) 1.7 [place] # (Auto) 0.3 L Eos # (Auto) 0.1 Baso # (Auto) 0.0 Immature Gran # (Auto) 0.0 PT 10.4 INR 1.00 Puncture Site Base Excess O2 Saturation ABG pH ABG pCO2 ABG pO2 ABG HCO3 ABG Total CO2 Tyler Test Hemoglobin Oxyhemoglobin Carboxyhemoglobin Total Hemoglobin O2 Delivery Device FiO2 % Sodium 139.5 Potassium 4.09 Chloride 102.0 Carbon Dioxide 30.8 H Anion Gap 10.79 BUN 17.8 Creatinine 0.93 Estimated GFR (MDRD) 77.00 BUN/Creatinine Ratio 19.13 Glucose 114.6 H Lactic Acid Calcium 9.33 Total Bilirubin 0.76 AST 38.2 ALT 19.7 Alkaline Phosphatase 94.4 Troponin I < 0.012 NT-Pro-B Natriuret Pep 445.000 H Total Protein 7.60 Albumin 4.13 Globulin 3.47 Albumin/Globulin Ratio 1.19 Lipase 203.7 TSH 3.110 Free T4 SARS CoV-2 RNA Rapid JENNYFER 11/10/21 11/10/21 11/10/21 12:02 12:02 12:05 WBC RBC Hgb Hct MCV MCH MCHC RDW Coeff of Rya Plt Count Immature Gran % (Auto) Neut % (Auto) Lymph % (Auto) [place] % (Auto) Eos % (Auto) Baso % (Auto) Neut # (Auto) Lymph # (Auto) [place] # (Auto) Eos # (Auto) Baso # (Auto) Immature Gran # (Auto) PT INR Puncture Site Rrad Base Excess 8.5 H O2 Saturation 95.4 ABG pH 7.48 H ABG pCO2 43.0 ABG pO2 72.0 L ABG HCO3 32.0 H ABG Total CO2 33.3 H Tyler Test + Hemoglobin 1.1 Oxyhemoglobin 93.8 L Carboxyhemoglobin 2.2 H Total Hemoglobin 13.2 O2 Delivery Device Ra FiO2 % 21.0 Sodium Potassium Chloride Carbon Dioxide Anion Gap BUN Creatinine Estimated GFR (MDRD) BUN/Creatinine Ratio Glucose Lactic Acid 0.84 Calcium Total Bilirubin AST ALT Alkaline Phosphatase Troponin I NT-Pro-B Natriuret Pep Total Protein Albumin Globulin Albumin/Globulin Ratio Lipase TSH Free T4 1.15 SARS CoV-2 RNA Rapid JENNYFER 11/10/21 12:32 WBC RBC Hgb Hct MCV MCH MCHC RDW Coeff of Ray Plt Count Immature Gran % (Auto) Neut % (Auto) Lymph % (Auto) [place] % (Auto) Eos % (Auto) Baso % (Auto) Neut # (Auto) Lymph # (Auto) [place] # (Auto) Eos # (Auto) Baso # (Auto) Immature Gran # (Auto) PT INR Puncture Site Base Excess O2 Saturation ABG pH ABG pCO2 ABG pO2 ABG HCO3 ABG Total CO2 Tyler Test Hemoglobin Oxyhemoglobin Carboxyhemoglobin Total Hemoglobin O2 Delivery Device FiO2 % Sodium Potassium Chloride Carbon Dioxide Anion Gap BUN Creatinine Estimated GFR (MDRD) BUN/Creatinine Ratio Glucose Lactic Acid Calcium Total Bilirubin AST ALT Alkaline Phosphatase Troponin I NT-Pro-B Natriuret Pep Total Protein Albumin Globulin Albumin/Globulin Ratio Lipase TSH Free T4 SARS CoV-2 RNA Rapid JENNYFER Negative Orders Category Date Time Status ABG DRAW REQUEST Stat CARDIO 11/10/21 11:42 Completed EKG-(ED ONLY) Stat CARDIO 11/10/21 11:42 Completed [place] [ED CATHETER INSERTION AND CARE] .ONCE EMERGENCY 11/10/21 14:07 Ordered ABG COOX Stat LAB 11/10/21 12:05 Completed CBC W/ AUTO DIFF Stat LAB 11/10/21 11:50 Completed CMP [COMPREHENSIVE METABOLIC PANEL] Stat LAB 11/10/21 11:50 Completed FREE T4 (FREE THYROXINE) Stat LAB 11/10/21 12:02 Completed LACTIC ACID Stat LAB 11/10/21 12:02 Completed LIPASE Stat LAB 11/10/21 11:50 Completed NT-PROBNP Stat LAB 11/10/21 11:50 Completed PT WITH INR Stat LAB 11/10/21 11:50 Completed SARS COV-2 RNA RAPID JENNYFER Stat LAB 11/10/21 12:32 Completed THYROID STIMULATING HORMONE Stat LAB 11/10/21 11:50 Completed TROPONIN I Stat LAB 11/10/21 11:50 Completed URINALYSIS C & S IF INDICATED Stat LAB 11/10/21 11:42 Uncollected Aspirin [Aspirin Chewable] MEDS 11/10/21 11:42 Discontinued 324 mg PO ONCE STA Clonidine HCl [Catapres] MEDS 11/10/21 11:42 Discontinued 0.1 mg PO ONCE ONE Lidocaine (Uro-Jet) [Uro-Jet] MEDS 11/10/21 14:07 Stat 10 ml MUCOUSMEMB ONCE STA Mag-Al Plus//Lidocaine [Gi Cocktail] MEDS 11/10/21 11:42 Discontinued 30 ml PO ONCE ONE Morphine Sulfate [Morphine 2 mg/ml Syringe] MEDS 11/10/21 11:42 Discontinued 2 mg IVP ONCE ONE Ondansetron HCl/Pf [Zofran 4 mg/2 ml] MEDS 11/10/21 11:42 Discontinued 4 mg IVP ONCE ONE CHEST, 1V AP ONLY Stat RADS 11/10/21 11:[address] ABDOMEN/PELVIS WO CONTRAST Stat RADS 11/10/21 11:42 Completed Medications Generic Name Dose Route Start Last Admin Trade Name Brian PRN Reason Stop Dose Admin Lidocaine HCl 10 ml 11/10/21 14:07 Lidocaine 10 Ml Jel.Pf.Selina (Urojet) MUCOUSMEMB 11/10/21 14:08 ONCE STA Discontinued Medications Generic Name Dose Route Start Last Admin Trade Name Freblanca PRN Reason Stop Dose Admin Al Hydroxide/Mg Hydroxide 30 ml 11/10/21 11:42 11/10/21 12:12 Mag-Al Plus//Lidocaine 30 Ml Btl PO 11/10/21 11:43 30 ml ONCE ONE Administration Aspirin 324 mg 11/10/21 11:42 11/10/21 12:09 Aspirin 81 Mg Tab.Chew PO 11/10/21 11:43 324 mg ONCE STA Administration Clonidine 0.1 mg 11/10/21 11:42 11/10/21 12:12 Clonidine Hcl 0.1 Mg Tablet PO 11/10/21 11:43 0.1 mg ONCE ONE Administration Morphine Sulfate 2 mg 11/10/21 11:42 11/10/21 12:17 Morphine Sulfate 2 Mg/Ml Syringe IVP 11/10/21 11:43 2 mg ONCE ONE Administration Ondansetron HCl 4 mg 11/10/21 11:42 11/10/21 12:13 Ondansetron Hcl/Pf 4 Mg/2 Ml Sdv IVP 11/10/21 11:43 4 mg ONCE ONE Administration Vital Signs: Temp Pulse Resp BP Pulse Ox 11/10/21 13:28 78 16 128/76 11/10/21 12:41 77 16 116/78 11/10/21 11:15 98.8 F 114 H 18 177/103 H 96 ISAIAH Risk Score ISAIAH Risk Score: Risk Score Odds of by 30D 0 0.1 (0.1-0.2) 1 0.3 (0.2-0.3) 2 0.4 (0.3-0.5) 3 0.7 (0.6-0.9) 4 1.2 (1.0-1.5) 5 2.2 (1.9-2.6) 6 3.0 (2.5-3.6) 7 4.8 (3.8-6.1) Discharge Plan Discharge Patient Disposition: ADMITTED INPATIENT Discharge Problem: Chest pain, Acute retention of urine Prescriptions: No Action finasteride 5 MG tablet 5 mg PO DAILY Rx Instructions: Dr. Zacarias changed dose today. Will finish up his current supply before needing refills. lisinopril 10 mg tablet 10 mg PO QDAY Qty: 90 1RF tamsulosin 0.4 MG capsule 0.4 mg PO DAILY clonazepam 0.5 mg tablet 1 mg PO DAILY Vision Plus Lutein 1 EACH tablet 3 ea PO DAILY Prostate Health 1 EACH tablet 1 ea PO DAILY cyanocobalamin (vitamin B-12) 1,000 mcg/mL solution 1,000 mcg IM ONCE Qty: 1 0RF magnesium citrate 125 mg capsule 125 mg PO QDAY vit D3-vit [id number] agcb-sjp-hh-mg tablet 1 tab PO DAILY Did you review [place] PERSONNEL ADVISER?: Not Applicable ED Provider: RUPESH PALMA Condition: Stable Physician Progress Note: []full inpatient tele admit d/w Dr Hunter
[2021-11-10 12:13] LABS: BASOPHILS % (AUTO) 0.2 % (0.0-3.0); EOSINOPHILS # (AUTO) 0.1 K/ul (0.0-0.7); EOSINOPHILS % (AUTO) 2.1 % (0.0-7.0); HEMATOCRIT 39.6 % (42.0-52.0); HEMOGLOBIN 13.5 g/dl (14.0-18.0); IMMATURE GRANULOCYTE % (AUTO) 0.5 % (0.0-5.0); LYMPHOCYTES # (AUTO) 1.7 K/uL (0.60-3.4); MEAN CORPUSCULAR HEMOGLOBIN 33.1 pg (27.0-31.0); MEAN CORPUSCULAR HGB CONC 34.1 (31.8-35.4); MEAN CORPUSCULAR VOLUME 97.1 fl (80.0-94.0); MONOCYTES # (AUTO) 0.3 K/uL (0.4-2.0); MONOCYTES % (AUTO) 7.5 (0-10); NEUTROPHILS # (AUTO) 2.2 K/ul (2.0-6.9); NEUTROPHILS % (AUTO) 50.7 % (42.2-75.2); PLATELET COUNT 160 10^3/uL (140-440); RDW COEFFICIENT OF VARIATION 13.4 % (11.6-14.8); RED BLOOD COUNT 4.08 10^6/ul (4.70-6.10); WHITE BLOOD COUNT 4.39 K/ul (4.2-10.2)
[2021-11-10 12:18] LABS: ABG O2 HGB 93.8 % (95-100); ABG PH 7.48 (7.35-7.45); BEecf 8.5 (-2.0-3.0); COHb 2.2 (0.5-1.5); MetHb 1.1 (0-1.5); TCO2 33.3 (19-24); sO2 95.4 % (94-98); tHb 13.2 g/dl (11.7-17.4)
[2021-11-10 12:19] LABS: ALANINE AMINOTRANSFERASE 19.7 U/L (0-50); ALBUMIN 4.13 g/dL (3.5-5.0); ALKALINE PHOSPHATASE 94.4 U/L (56-119); ASPARTATE AMINO TRANSFERASE 38.2 U/L (17-59); BILIRUBIN,TOTAL 0.76 mg/dL (0.2-1.3); BLOOD UREA NITROGEN 17.8 mg/dL (9-20); CALCIUM 9.33 mg/dL (8.4-10.2); CARBON DIOXIDE 30.8 mmol/L (22-30.0); CREATININE 0.93 mg/dL (0.60-1.10); GLUCOSE 114.6 mg/dL (74-106); LIPASE 203.7 U/L (23-300); POTASSIUM 4.09 mmol/L (3.5-5.1); SODIUM 139.5 mmol/L (134.5-145)
[2021-11-10 12:30] LABS: PROTHROMBIN TIME 10.4 SEC (9.3-11.0)
[2021-11-10 12:37] LABS: TROPONIN I < 0.012 ng/ml (0.0000-0.120)
--- NOTE | 2021-11-10 13:36 | DI ---
EXAM: Frontal view of the chest. HISTORY: Chest pain. COMPARISON: Chest radiograph 03/10/2020. FINDINGS: Large hiatal hernia. Calcific atherosclerosis of the aorta Normal heart size. No acute consolidation. No visible effusion or pneumothorax. Moderate to severe degenerative change of the glenohumeral joints bilaterally. Multilevel spondylosi s. Bones appear demineralized. IMPRESSION: 1. No acute process demonstrated. 2. Calcific atherosclerosis. 3. Large hiatal hernia.
--- NOTE | 2021-11-10 13:45 | CT ---
EXAM: CT Abdomen without contrast. CT Pelvis without contrast. HISTORY: Abdominal pain. COMPARISON: None. TECHNIQUE: Multiple axial images of the abdomen and pelvis were obtained without intravenous contras t. Images were reformatted in the sagittal and coronal plane. FINDINGS: Please note that evaluation of the abdominal and pelvic structures is limited due to lack of intravenous contrast. Emphysema in the lung bases. A 1.3 cm anterior mediastinal nodule on axial image two may be fluid in the pericardial recess given apparent communication on axial image 1. Degenerative changes are present in the spine. Liver, gallbladder, spleen, and adrenal glands are unremarkable. A 2.4 x 1.9 x 2.2 cm homogeneous cy stic mass in the pancreatic body axial image 58 and coronal image 39. No peripancreatic inflammation . Homogeneous cystic mass arising off the right kidney measures 16.6 x 13.9 x 13.9 cm. Probable 0.9 cm right renal cortical cyst axial image 64. Mild right hydronephrosis/hydroureter. Urinary bladder i s markedly distended although no focal bladder abnormalities seen. Prostate is enlarged with mass ef fect on the base of the bladder. Coarse prostatic calcifications present. Large hiatal hernia with some edema surrounding the stomach at the diaphragmatic hiatus. There is no overt obstruction at this level. Small and large bowel otherwise normal. Diverticulosis noted. Th e appendix not seen with certainty. Atherosclerotic calcifications are present. No free fluid or free air. Small fatty umbilical hernia. There is a fat-containing hernia in the right lumbar region at the lev el of posterior hepatic lobe on axial image 56. IMPRESSION: 1. Large hiatal hernia. Edema at the diaphragmatic hiatus without overt obstruction. Consider uppe r gastrointestinal examination for further characterization. 2. Markedly distended urinary bladder with mild right hydronephrosis most suggestive of urinary rete ntion possibly due to outlet obstruction from prostatic enlargement. 3. Large right renal cyst measuring up to 16.6 cm. 4. Cystic mass of the pancreatic body. Consider follow-up MRI for further characterization. 5. Diverticulosis. 6. Atherosclerosis. All CT scans are performed using dose optimization techniques as appropriate to the performed exam an d include at least one of the following: Automated exposure control, adjustment of the mA and/or kV according t o size, and the use of iterative reconstruction technique.
[2021-11-10] MEDS ORDERED: URO-JET MUCOUSMEMB STA (14:07)
[2021-11-10] MEDS ORDERED: TYLENOL PO PRN (14:10)
[2021-11-10] MEDS ORDERED: ATROPINE SULFATE PFS IVP PRN (14:15)
[2021-11-10] MEDS ORDERED: NITROSTAT SL PRN (14:15)
[2021-11-10 14:21] LABS: BILIRUBIN,URINE Negative (NEGATIVE); CLARITY,URINE Clear (CLEAR); COLOR,URINE Yellow (YELLOW); GLUCOSE, URINE (UA) Negative (NEGATIVE); KETONES,URINE Negative (NEGATIVE); LEUKOCYTE ESTERASE ,URINE Negative (NEGATIVE); NITRITE,URINE Negative (NEGATIVE); PH,URINE 5.5 (5-9); PROTEIN,URINE Negative (NEGATIVE); URINE, BLOOD Negative (NEGATIVE); UROBILINOGEN,URINE 0.2 (0.2)
[2021-11-10 15:13] VITALS: BMI 26.3
[2021-11-10] MEDS: SODIUM CHLORIDE 1,000 ML IV SCH (15:14)
[2021-11-10 16:24] LABS: AMYLASE 96.6 U/L (30-110); LIPASE 330.2 U/L (23-300)
[2021-11-10] MEDS: CARAFATE PO SCH ×2 (17:00→20:09)
[2021-11-10] MEDS: PROTONIX IV IVP SCH (20:10)
[2021-11-10] MEDS: MIRALAX PO PRN (21:05)
[2021-11-11] MEDS: SODIUM CHLORIDE 1,000 ML IV SCH ×2 (04:03→20:41)
[2021-11-11 05:22] LABS: BASOPHILS % (AUTO) 0.4 % (0.0-3.0); EOSINOPHILS # (AUTO) 0.1 K/ul (0.0-0.7); EOSINOPHILS % (AUTO) 2.2 % (0.0-7.0); HEMATOCRIT 35.5 % (42.0-52.0); HEMOGLOBIN 11.7 g/dl (14.0-18.0); IMMATURE GRANULOCYTE % (AUTO) 0.2 % (0.0-5.0); LYMPHOCYTES # (AUTO) 1.4 K/uL (0.60-3.4); LYMPHOCYTES % (AUTO) 26.1 (10.0-50.0); MEAN CORPUSCULAR HEMOGLOBIN 32.9 pg (27.0-31.0); MEAN CORPUSCULAR VOLUME 99.7 fl (80.0-94.0); MONOCYTES # (AUTO) 0.5 K/uL (0.4-2.0); MONOCYTES % (AUTO) 9.5 (0-10); NEUTROPHILS # (AUTO) 3.3 K/ul (2.0-6.9); NEUTROPHILS % (AUTO) 61.6 % (42.2-75.2); PLATELET COUNT 155 10^3/uL (140-440); RDW COEFFICIENT OF VARIATION 13.6 % (11.6-14.8); RED BLOOD COUNT 3.56 10^6/ul (4.70-6.10); WHITE BLOOD COUNT 5.37 K/ul (4.2-10.2)
[2021-11-11 05:35] LABS: ALANINE AMINOTRANSFERASE 16.3 U/L (0-50); ALBUMIN 3.35 g/dL (3.5-5.0); ALKALINE PHOSPHATASE 77.6 U/L (56-119); ASPARTATE AMINO TRANSFERASE 35.8 U/L (17-59); BILIRUBIN,TOTAL 0.63 mg/dL (0.2-1.3); BLOOD UREA NITROGEN 16.6 mg/dL (9-20); CALCIUM 8.64 mg/dL (8.4-10.2); CARBON DIOXIDE 30.4 mmol/L (22-30.0); CREATININE 0.81 mg/dL (0.60-1.10); GLUCOSE 101.3 mg/dL (74-106); POTASSIUM 4.38 mmol/L (3.5-5.1); SODIUM 138.3 mmol/L (134.5-145); TOTAL PROTEIN 6.35 g/dL (6.3-8.2)
[2021-11-11] MEDS: CARAFATE PO SCH ×4 (05:54→20:42)
[2021-11-11] MEDS: PROSCAR PO SCH (08:37)
[2021-11-11] MEDS: KLONOPIN PO SCH (08:37)
[2021-11-11] MEDS: ZESTRIL PO SCH (08:38)
[2021-11-11] MEDS: FLOMAX PO SCH (08:38)
[2021-11-11] MEDS: PROTONIX IV IVP SCH ×2 (08:50→20:43)
[2021-11-11] MEDS: MULTIVITAMIN MINERALS LUTEIN PO SCH (09:43)
[2021-11-11] MEDS: [UNRECOGNIZED DRUG - OTHER] PO SCH (09:43)
[2021-11-11] MEDS: VIT D3 VIT K BERBERINE HOPS PO SCH (09:44)
[2021-11-11] MEDS: SAW VIT E SOD SEL LYC BETA PYG PO SCH (09:44)
[2021-11-11] MEDS ORDERED: MILK OF MAGNESIA PO STA (16:18)
[2021-11-11] MEDS: NON-FORMULARY MEDICATION (Melatonin 10 mg Tablet) PO SCH (20:43)
[2021-11-12 04:51] LABS: BASOPHILS % (AUTO) 0.4 % (0.0-3.0); EOSINOPHILS # (AUTO) 0.2 K/ul (0.0-0.7); EOSINOPHILS % (AUTO) 3.9 % (0.0-7.0); HEMOGLOBIN 11.5 g/dl (14.0-18.0); IMMATURE GRANULOCYTE % (AUTO) 0.4 % (0.0-5.0); LYMPHOCYTES # (AUTO) 1.2 K/uL (0.60-3.4); LYMPHOCYTES % (AUTO) 25.8 (10.0-50.0); MEAN CORPUSCULAR HEMOGLOBIN 32.9 pg (27.0-31.0); MEAN CORPUSCULAR HGB CONC 32.9 (31.8-35.4); MONOCYTES # (AUTO) 0.5 K/uL (0.4-2.0); MONOCYTES % (AUTO) 10.4 (0-10); NEUTROPHILS # (AUTO) 2.7 K/ul (2.0-6.9); NEUTROPHILS % (AUTO) 59.1 % (42.2-75.2); PLATELET COUNT 153 10^3/uL (140-440); RDW COEFFICIENT OF VARIATION 13.5 % (11.6-14.8); WHITE BLOOD COUNT 4.61 K/ul (4.2-10.2)
[2021-11-12 05:07] LABS: ALANINE AMINOTRANSFERASE 15.4 U/L (0-50); ALBUMIN 3.12 g/dL (3.5-5.0); ALKALINE PHOSPHATASE 72.8 U/L (56-119); BILIRUBIN,TOTAL 0.6 mg/dL (0.2-1.3); BLOOD UREA NITROGEN 14.8 mg/dL (9-20); CALCIUM 8.3 mg/dL (8.4-10.2); CARBON DIOXIDE 27.9 mmol/L (22-30.0); CHLORIDE 107.4 mmol/L (98-107); CREATININE 0.79 mg/dL (0.60-1.10); POTASSIUM 4.37 mmol/L (3.5-5.1); SODIUM 138.2 mmol/L (134.5-145); TOTAL PROTEIN 6.05 g/dL (6.3-8.2)
[2021-11-12] MEDS: CARAFATE PO SCH ×4 (05:46→20:15)
[2021-11-12] MEDS ORDERED: CITRATE OF MAGNESIA PO ONE (08:16)
[2021-11-12] MEDS: FLOMAX PO SCH ×2 (08:55→20:15)
[2021-11-12] MEDS: ZESTRIL PO SCH (08:55)
[2021-11-12] MEDS: KLONOPIN PO SCH (08:55)
[2021-11-12] MEDS: PROTONIX IV IVP SCH ×2 (08:55→20:55)
[2021-11-12] MEDS: MIRALAX PO PRN ×2 (08:55→20:14)
[2021-11-12] MEDS: [UNRECOGNIZED DRUG - OTHER] PO SCH (08:56)
[2021-11-12] MEDS: PROSCAR PO SCH (08:56)
[2021-11-12] MEDS: MULTIVITAMIN MINERALS LUTEIN PO SCH (08:56)
[2021-11-12] MEDS: SAW VIT E SOD SEL LYC BETA PYG PO SCH (08:57)
[2021-11-12] MEDS: VIT D3 VIT K BERBERINE HOPS PO SCH (08:57)
[2021-11-12] MEDS: [UNRECOGNIZED DRUG - OTHER] PO SCH (09:29)
[2021-11-12] MEDS: SODIUM CHLORIDE 1,000 ML IV SCH (10:15)
[2021-11-12] MEDS: COLACE PO SCH (20:14)
[2021-11-12] MEDS: NON-FORMULARY MEDICATION (Melatonin 10 mg Tablet) PO SCH (20:16)
[2021-11-13 05:05] LABS: BASOPHILS % (AUTO) 0.2 % (0.0-3.0); EOSINOPHILS # (AUTO) 0.2 K/ul (0.0-0.7); EOSINOPHILS % (AUTO) 4.1 % (0.0-7.0); HEMATOCRIT 36.1 % (42.0-52.0); HEMOGLOBIN 12.1 g/dl (14.0-18.0); IMMATURE GRANULOCYTE % (AUTO) 0.2 % (0.0-5.0); LYMPHOCYTES # (AUTO) 1.3 K/uL (0.60-3.4); LYMPHOCYTES % (AUTO) 28.4 (10.0-50.0); MEAN CORPUSCULAR HGB CONC 33.5 (31.8-35.4); MEAN CORPUSCULAR VOLUME 98.4 fl (80.0-94.0); MONOCYTES # (AUTO) 0.5 K/uL (0.4-2.0); MONOCYTES % (AUTO) 11.5 (0-10); NEUTROPHILS # (AUTO) 2.6 K/ul (2.0-6.9); NEUTROPHILS % (AUTO) 55.6 % (42.2-75.2); PLATELET COUNT 161 10^3/uL (140-440); RDW COEFFICIENT OF VARIATION 13.5 % (11.6-14.8); RED BLOOD COUNT 3.67 10^6/ul (4.70-6.10); WHITE BLOOD COUNT 4.69 K/ul (4.2-10.2)
[2021-11-13 05:12] LABS: ALBUMIN 3.18 g/dL (3.5-5.0); ALKALINE PHOSPHATASE 78.6 U/L (56-119); ASPARTATE AMINO TRANSFERASE 27.8 U/L (17-59); BILIRUBIN,TOTAL 0.5 mg/dL (0.2-1.3); BLOOD UREA NITROGEN 14.3 mg/dL (9-20); CALCIUM 8.58 mg/dL (8.4-10.2); CARBON DIOXIDE 28.7 mmol/L (22-30.0); CHLORIDE 107.8 mmol/L (98-107); CREATININE 0.85 mg/dL (0.60-1.10); GLUCOSE 97.2 mg/dL (74-106); POTASSIUM 4.35 mmol/L (3.5-5.1); SODIUM 138.7 mmol/L (134.5-145); TOTAL PROTEIN 6.14 g/dL (6.3-8.2)
[2021-11-13] MEDS: CARAFATE PO SCH ×4 (05:47→20:31)
[2021-11-13] MEDS ORDERED: GLYCERIN SUPPOSITORY RC ONE (05:58)
[2021-11-13] MEDS: [UNRECOGNIZED DRUG - OTHER] PO SCH (08:54)
[2021-11-13] MEDS: ZESTRIL PO SCH (08:54)
[2021-11-13] MEDS: PROSCAR PO SCH (08:54)
[2021-11-13] MEDS: MIRALAX PO PRN (08:54)
[2021-11-13] MEDS: PROTONIX IV IVP SCH ×2 (08:54→20:46)
[2021-11-13] MEDS: KLONOPIN PO SCH (08:54)
[2021-11-13] MEDS: FLOMAX PO SCH ×2 (08:54→20:32)
[2021-11-13] MEDS: [UNRECOGNIZED DRUG - OTHER] PO SCH (08:58)
[2021-11-13] MEDS: MULTIVITAMIN MINERALS LUTEIN PO SCH (08:58)
[2021-11-13] MEDS: VIT D3 VIT K BERBERINE HOPS PO SCH (08:59)
[2021-11-13] MEDS: SAW VIT E SOD SEL LYC BETA PYG PO SCH (08:59)
[2021-11-13] MEDS: COLACE PO SCH (20:31)
[2021-11-13] MEDS: NON-FORMULARY MEDICATION (Melatonin 10 mg Tablet) PO SCH (20:32)
[2021-11-14 05:23] VITALS: BP 132/73; TEMP 97.9
[2021-11-14 05:29] LABS: BASOPHILS % (AUTO) 0.2 % (0.0-3.0); EOSINOPHILS # (AUTO) 0.2 K/ul (0.0-0.7); EOSINOPHILS % (AUTO) 4.3 % (0.0-7.0); HEMOGLOBIN 12.3 g/dl (14.0-18.0); IMMATURE GRANULOCYTE % (AUTO) 0.5 % (0.0-5.0); LYMPHOCYTES # (AUTO) 1.3 K/uL (0.60-3.4); LYMPHOCYTES % (AUTO) 30.3 (10.0-50.0); MEAN CORPUSCULAR HEMOGLOBIN 33.1 pg (27.0-31.0); MEAN CORPUSCULAR HGB CONC 33.2 (31.8-35.4); MEAN CORPUSCULAR VOLUME 99.5 fl (80.0-94.0); MONOCYTES # (AUTO) 0.4 K/uL (0.4-2.0); MONOCYTES % (AUTO) 9.7 (0-10); NEUTROPHILS # (AUTO) 2.4 K/ul (2.0-6.9); PLATELET COUNT 165 10^3/uL (140-440); RDW COEFFICIENT OF VARIATION 13.6 % (11.6-14.8); RED BLOOD COUNT 3.72 10^6/ul (4.70-6.10); WHITE BLOOD COUNT 4.42 K/ul (4.2-10.2)
[2021-11-14] MEDS: CARAFATE PO SCH ×2 (05:45→11:08)
[2021-11-14 05:49] LABS: ALANINE AMINOTRANSFERASE 18.5 U/L (0-50); ALBUMIN 3.5 g/dL (3.5-5.0); ALKALINE PHOSPHATASE 86.9 U/L (56-119); ASPARTATE AMINO TRANSFERASE 27.3 U/L (17-59); BILIRUBIN,TOTAL 0.39 mg/dL (0.2-1.3); BLOOD UREA NITROGEN 17.2 mg/dL (9-20); CALCIUM 8.53 mg/dL (8.4-10.2); CHLORIDE 105.5 mmol/L (98-107); CREATININE 0.87 mg/dL (0.60-1.10); GLUCOSE 95.8 mg/dL (74-106); POTASSIUM 4.23 mmol/L (3.5-5.1); SODIUM 139.2 mmol/L (134.5-145); TOTAL PROTEIN 6.65 g/dL (6.3-8.2)
[2021-11-14] MEDS: ZESTRIL PO SCH (08:35)
[2021-11-14] MEDS: KLONOPIN PO SCH (08:35)
[2021-11-14] MEDS: PROSCAR PO SCH (08:35)
[2021-11-14] MEDS: FLOMAX PO SCH (08:36)
[2021-11-14] MEDS: [UNRECOGNIZED DRUG - OTHER] PO SCH (08:37)
[2021-11-14] MEDS: SAW VIT E SOD SEL LYC BETA PYG PO SCH (08:41)
[2021-11-14] MEDS: VIT D3 VIT K BERBERINE HOPS PO SCH (08:41)
[2021-11-14] MEDS: MULTIVITAMIN MINERALS LUTEIN PO SCH (08:41)
[2021-11-14] MEDS: [UNRECOGNIZED DRUG - OTHER] PO SCH (08:41)
[2021-11-14] MEDS: PROTONIX IV IVP SCH (09:02)
--- NOTE | 2021-11-14 09:35 | PCM.PROG ---
Attending Provider: ATTENDING PROVIDER: Dr. MARSHALL HUNTER This patient is seen with Yesy Niño, Nurse Practitioner. DATE OF SERVICE: 11/14/21 SUBJECTIVE: This 86 year old /WHITE M was hospitalized 11/10/21. Had large bowel movement yesterday. Has been voiding without problem. Adamant about going home. Radiology still unable to do upper GI today. The patient is agreeable to return as outpatient. Will also return as outpatient for MRI of pancreas due to pancreatic cyst noted on CT. REVIEW OF SYSTEMS: CONSTITUTIONAL: No night sweats. Fatigue. No fever or chills. HEENT: Eyes: No visual changes. No eye pain. No eye discharge. ENT: No runny nose. No epistaxis. No sinus pain. No odynophagia. No congestion. RESPIRATORY: No cough, no congestion. No hemoptysis. No shortness of breath. CARDIOVASCULAR: No angina symptoms. No CHF symptoms. No atypical chest pain for CAD. No palpitations. No orthopnea.. GASTROINTESTINAL: No abdominal pain. No nausea or vomiting. No diarrhea or constipation. No hematemesis. No hematochezia. GENITOURINARY: No urgency. No frequency. No dysuria. No hematuria. No obstructive symptoms. No discharge. No pain. No significant abnormal bleeding. MUSCULOSKELETAL: No musculoskeletal pain; no joint swelling. NEUROLOGICAL: Awake, alert, oriented to time, place and person. No headache. No neck pain. No syncope. No seizures. No dizziness. PSYCHIATRIC: Not anxious. No depression. No suicidal thoughts. No homicidal thoughts. SKIN: No rash. No lesions. No wounds. ENDOCRINE: No unexplained weight loss. No weight gain. HEMATOLOGIC/LYMPHATIC: No anemia. No purpura. No petechiae. No prolonged or excessive bleeding. No palpable lymph nodes. PHYSICAL EXAMINATION: GENERAL: The patient is awake, alert and oriented, lying/sitting in bed in no distress. VITAL SIGNS: Temperature 97.9 F, Pulse 65, Respiratory Rate 20, BP 132/73, Pulse Ox 95% HEENT: Head normocephalic, atraumatic. Eyes: Extraocular muscles are intact. Pupils are equal, round and reactive to light and accommodation. Ears: No lesions. Nose appeared normal. Throat: No exudate or erythema. NECK: Supple. No JVD, no carotid bruit. No lymphadenopathy or thyromegaly. LUNGS: Clear to auscultation. Percussion note normal. Chest symmetrical. HEART: S1, S2, no S3. No murmurs. No cyanosis or clubbing. No ascites. Pulses: Dorsalis pedis and posterior tibial pulses +1 to +2 both sides. ABDOMEN: Soft. Non-tender. Bowel sounds active. No CVA tenderness. No mass felt. EXTREMITIES: No edema. Full range of motion of all extremities, equal. NEUROLOGIC: No focal deficit. Cranial nerves II through XII are grossly intact. No headache. No double vision. SKIN: Not dry. Intact. Turgor-normal. LYMPHATIC: No palpable lymph nodes/no lymphedema. MUSCULOSKELETAL: Normal joints with no swelling. Muscle tone is normal. LAB REVIEW: 11/14/21 04:59 11/14/21 04:59 11/14/21 04:59: Sodium 139.2, Potassium 4.23, Chloride 105.5, Carbon Dioxide 30.0, Anion Gap 7.93, BUN 17.2, Creatinine 0.87, Estimated GFR (MDRD) 83.00, BUN/Creatinine Ratio 19.77, Glucose 95.8, Calcium 8.53, Total Bilirubin 0.39, AST 27.3, ALT 18.5, Alkaline Phosphatase 86.9, Total Protein 6.65, Albumin 3.50, Globulin 3.15, Albumin/Globulin Ratio 1.11 11/14/21 04:59: WBC 4.42, RBC 3.72 L, Hgb 12.3 L, Hct 37.0 L, MCV 99.5 H, MCH 33.1 H, MCHC 33.2, RDW Coeff of Ray 13.6, Plt Count 165, Immature Gran % (Auto) 0.5, Neut % (Auto) 55.0, Lymph % (Auto) 30.3, Mathews % (Auto) 9.7, Eos % (Auto) 4.3, Baso % (Auto) 0.2, Neut # (Auto) 2.4, Lymph # (Auto) 1.3, Mathews # (Auto) 0.4, Eos # (Auto) 0.2, Baso # (Auto) 0.0, Immature Gran # (Auto) 0.0 ASSESSMENT: Please see below. 1. Atypical chest pain related to GERD and large hiatal hernia 2. Urinary retention secondary to BPH 3. Chronic constipation 4. Mild right hydronephrosis 5. Lesion on tail end of pancreas. PLAN: 1. Discharge home 2. Protonix 40mg BID 3. Carafate 1 gram four times a day 4. Will get outpatient appointment sooner to followup with Dr. Franco for urinary retention, BPH and hydronephrosis. 5. Outpatient upper GI and MRI of pancreas 6. Flomax BID Plan and coordination of the patient's care discussed in the presence of Ob/Gyn and nurse. EDUCATION: CONDITION: SCRIBED BY: Shashi GAYTAN scribed while in presence of service performed by Dr. Hunter/Yesy Niño APRN on 11/14/21 ([id number])
--- NOTE | 2021-11-14 09:52 | DS ---
DATE OF SERVICE: 11/14/21 FINAL DIAGNOSIS: 1. Atypical chest pain related to GERD and large hiatal hernia 2. Urinary retention secondary to BPH 3. Chronic constipation 4. Mild right hydronephrosis 5. Lesion on tail end of pancreas. DISCHARGE INSTRUCTIONS: Discharge home today. Continue home medications as previously ordered. Outpatient testing at [facility]; MRI of pancreas SundayNovember 15 at 9am. Upper GI. Followup with Urologist Dr. Vasquez at [facility] in December 06 at 9pm. Followup with Dr. Hunter's office November 24 at 11:15am. MEDICATIONS AT DISCHARGE: Prostate Health caplet 1 each PO daily Vision Plus Lutein Vitamin 3 each PO daily Finasteride 5mg PO daily Vitamin B12 1000mcg IM once Magnesium Citrate 125mg PO Q daily Vitamin D3 1 tablet PO daily Clonazepam 0.5mg PO BEDTIME PRN Lisinopril 10mg PO Q day Melatonin 10mg PO bedtime Miralax 17gram PO daily Peak colon support two capsule PO daily NEW PRESCRIPTIONS: Sucralfate 1gram PO BID Protonix 40mg PO BID DISCONTINUED MEDICATIONS: Tamsulosin 0.4mg PO daily DIET INSTRUCTIONS: Regular. Small frequent meals. avoid fatty or spicy foods. Remain upright after meals. ACTIVITY: As tolerate with resting periods as needed. Avoid being out in the [facility] HOSPITAL COURSE: 86 year old male who presented to the ER with chest pain and urinary retention. CT of abdomen showed large hiatal hernia along with large prostate causing obstructive mild hydronephrosis on the right. We increased Flomax to BID, started IV fluids and inserted a Keene. He now has been voiding on his own for past two days with no problems. Started on IV Protonix and PO Carafate. Chest pain was found to be related to large hiatal hernia and GERD, this has not occurred since ER. Upper GI was ordered however radiology still unable to do it since admission. The patient is agreeable to return tomorrow as outpatient. Also to be noted lesion on tail end of pancreas per CT, we will order outpatient MRI of the pancreas. The patient is stable for discharge. We will make sooner appointment with Dr. Vasquez for BPH, Right hydronephrosis and urinary retention. Will continue on Protonix, Carafate and increased Flomax. TIME SPENT: More than 60 minutes. MTDD
--- NOTE | 2021-11-14 13:42 | HP ---
DATE OF SERVICE: 11/10/21 REASON FOR HOSPITALIZATION: Chest pain HISTORY OF PRESENT ILLNESS: 86 year old white male had anterior chest tightness noted today after he had eaten. When he arrived to the emergency room the patient had epigastric pain with some nausea and mild left lower quadrant cramping. The patient had investigation for any acute myocardial event which is was negative with negative Troponin. EKG did not show any acute changes. On further workup the patient had evidence of hiatal hernia with some edema at the junction of diaphragm and the hernia along with some nonspecific findings. The patient also had evidence of urinary retention with mild hydronephrosis. PAST MEDICAL HISTORY/PAST SURGICAL HISTORY: History of anemia which is stable Chronic anemia Cervical radiculopathy Bilateral shoulder pain followed Insomnia Obstructive sleep apnea Hypertension COVID 03/14 History of C spine fracture 40 years ago. REVIEW OF SYSTEMS: CONSTITUTIONAL: No night sweats. No fatigue, malaise, lethargy. No fever or chills. HEENT: Eyes: No visual changes. No eye pain. No eye discharge. ENT: No runny nose. No epistaxis. No sinus pain. No sore throat. No odynophagia. No ear pain. No congestion. RESPIRATORY: No cough, no congestion. No hemoptysis. No shortness of breath. CARDIOVASCULAR: No angina symptoms. No CHF symptoms. Chest pain, sharp, left sided subsided on admission. No palpitations. No PND. No orthopnea. Chest pain has moved to epigastric and left lower quadrant. GASTROINTESTINAL: No abdominal pain. Mild nausea. No vomiting. Refux type of symptoms. No diarrhea or constipation. No hematemesis. No hematochezia. GENITOURINARY: No urgency. No frequency. No dysuria. No hematuria. No obstructive symptoms. No discharge. No pain. No significant abnormal bleeding. MUSCULOSKELETAL: No musculoskeletal pain. No joint swelling. No arthritis. NEUROLOGICAL: No headache. No neck pain. No syncope. No seizures. No dizziness. PSYCHIATRIC: Not anxious. No depression. No suicidal thoughts. No homicidal thoughts. SKIN: No rash. No lesions. No wounds. ENDOCRINE: No unexplained weight loss. No weight gain. HEMATOLOGIC/LYMPHATIC: No anemia. No purpura. No petechiae. No prolonged or excessive bleeding. No palpable lymph nodes. PERSONAL/FAMILY/SOCIAL HISTORY: The patient is , lives by himself. Nonsmoker. No alcohol abuse. MEDICATIONS: Tamsulosin Finasteride Magnesium Clonazepam Lisinopril Melatonin Polyethylene glycol ALLERGIES: None. PHYSICAL EXAMINATION: GENERAL: The patient is oriented to time, place and person. VITAL SIGNS: Temperature 98.8, pulse 77, respiratory rate 16, blood pressure 116/78 and pulse ox 96%. On admission had pulse of 114 with blood pressure 177/105, settled down with no pain. HEENT: Head normocephalic, atraumatic. Eyes: Extraocular muscles are intact. Pupils are equal, round and reactive to light and accommodation. Ears: No lesions. Nose appeared normal. Throat: No exudate or erythema. NECK: Supple. No JVD, no carotid bruit. No lymphadenopathy or thyromegaly. LUNGS:Decreased breath sounds but clear to auscultation. Percussion note normal. Chest symmetrical. HEART: S1, S2, no S3. No murmur. No cyanosis or clubbing. No ascites. Pulses: Dorsalis pedis and posterior tibial pulses +2 bilaterally. ABDOMEN: Soft. Nontender. Bowel sounds active. No CVA tenderness. No mass felt. EXTREMITIES: No edema. Full range of motion of all extremities, equal. NEUROLOGIC: No focal deficit. Cranial nerves II through XII are grossly intact. No headache, no double vision or headache. SKIN: Not dry. Intact. Turgor - normal. LYMPHATIC: No palpable lymph nodes/no lymphedema. MUSCULOSKELETAL: Normal joints with no swelling. Muscle tone is normal. LABS: Hgb 13, hct 97, WBC 4,300 normal differential, creatinine 0.9, BUN 17, potassium 4. Troponin negative. PROBNP 445, TSH normal. COVID negative. Arterial blood gasses pO2 72, pCO2 43, pH 7.4 with 95% saturation on room air. Lactic acid 0.84 normal. Free T4 1.1 normal. EKG sinus rhythm. No acute changes. The patient chest x-ray negative. CT scan of the abdomen and pelvis showed hiatal hernia with edema at junction of diaphragm and hiatal hernia, no other acute findings noted except for mild hydronephrosis with urinary retention. ASSESSMENT: 1. Chest pain seems to be noncardiac likely from large hiatal hernia with reflux 2. Mild hydronephrosis with urinary retention with prostatic hypertrophy PLAN: 1. Hospitalize the patient with Keene Catheter 2. Routine telemetry orders to rule out any [place] or ischemia which I doubt 3. Protonix 40mg BID 4. Entire reflux measures 5. Telemetry to monitor cardiac problems CONDITION: Stable The patient is DNR. TIME SPENT: More than 70 minutes. MTDD
--- NOTE | 2021-11-15 10:00 | PN ---
DATE OF SERVICE: 11/10/21 ADMIT NOTE SUBJECTIVE: 86 year old white male after he was eating the patient developed chest pain and then epigastric pain. The patient was brought to the emergency room. The patient is usually after he eats. The patient was ruled out to have NV or ischemia and cardiac markers were negative. Abdominal pain had also subsided while he was in the emergency room. CT scan of the abdomen showed large hiatal hernia with some edema at diaphragmatic area otherwise no remarkable findings were noted. EKG is sinus rhythm with no acute changes. Cardiac markers were negative. The patient was hospitalized for evaluation for chest pain likely could be from reflux and esophageal spasm with large hiatal hernia. Also had urinary retention, mild hydronephrosis with normal kidney function. The patient's GFR was 77 cc per minute. Troponin was negative. PROBNP was 445. TSH was normal. Arterial blood gasses were normal with pO2 of 72, pCO2 of 43, pH 7.48 with 95% saturation on room air. The patient's condition is overall stable. The patient will be treated with fluids, telemetry to monitor cardiac rhythm, Protonix 40mg BID for reflux type of symptoms. Keene catheter has already been inserted. CONDITION: Stable. TIME SPENT: More than 30 minutes. Plan and coordination of the patient's care discussed in the presence of nurse. [place]
--- NOTE | 2021-11-15 11:29 | PN ---
DATE OF SERVICE: 11/11/21 SUBJECTIVE: 86 year old white male hospitalized with chest pain, epigastric pain and urinary retention. The patient's chest pain and abdominal pain has subsided. He said for the first time after eating he doesn't have any pain. He is on Protonix. REVIEW OF SYSTEMS: CONSTITUTIONAL: No night sweats. No fatigue, malaise, lethargy. No fever or chills. HEENT: Eyes: No visual changes. No eye pain. No eye discharge. ENT: No runny nose. No epistaxis. No sinus pain. No sore throat. No odynophagia. No congestion. RESPIRATORY: No cough, no congestion. No hemoptysis. No shortness of breath. CARDIOVASCULAR: No angina symptoms. No CHF symptoms. No atypical chest pain for CAD. No palpitations. No PND. No orthopnea. GASTROINTESTINAL: No abdominal pain. No nausea or vomiting. No diarrhea or constipation. No hematemesis. No hematochezia. GENITOURINARY: No urgency. No frequency. No dysuria. No hematuria. No obstructive symptoms. No discharge. No pain. No significant abnormal bleeding. MUSCULOSKELETAL: No musculoskeletal pain; no joint swelling. NEUROLOGICAL: No headache. No neck pain. No syncope. No seizures. No dizziness. PSYCHIATRIC: Not anxious. No depression. No suicidal thoughts. No homicidal thoughts. SKIN: No rash. No lesions. No wounds. ENDOCRINE: No unexplained weight loss. No weight gain. HEMATOLOGIC/LYMPHATIC: No anemia. No purpura. No petechiae. No prolonged or excessive bleeding. No palpable lymph nodes. PHYSICAL EXAMINATION: VITAL SIGNS: Temperature 97, pulse 54, respiratory rate 18, blood pressure 150/70 and pulse ox 96%. HEENT: Head normocephalic, atraumatic. Eyes: Extraocular muscles are intact. Pupils are equal, round and reactive to light and accommodation. Ears: No lesions. Nose appeared normal. Throat: No exudate or erythema. NECK: Supple. No JVD, no carotid bruit. No lymphadenopathy or thyromegaly. LUNGS: Clear to auscultation. Percussion note normal. Chest symmetrical. HEART: S1, S2, no S3. No murmurs. No cyanosis or clubbing. No ascites. Pulses: Dorsalis pedis and posterior tibial pulses +1 to +2 bilaterally. ABDOMEN: Soft. Nontender. Bowel sounds active. No CVA tenderness. No mass felt. EXTREMITIES: No edema. Full range of motion of all extremities, equal. NEUROLOGIC: No focal deficit. Cranial nerves II through XII are grossly intact. No headache. No double vision. SKIN: Not dry. Intact. Turgor - normal. LYMPHATIC: No palpable lymph nodes/no lymphedema. MUSCULOSKELETAL: Normal joints with no swelling. Muscle tone is normal. LABS: Hgb 11.7, cht 35, WBC 5,300 normal differential, creatinine 0.8, BUN 16, potassium 1.3. ASSESSMENT: 1. Chest pain subsided. no evidence of SD or ischemia. Chest pain likely esophageal spasm likely from large hiatal hernia. 2. Urinary retention PLAN: 1. Protonix 40mg BID helping. 2. We will discontinue Keene Catheter maybe tomorrow and see how he does 3. Increase the Tamsulosin to 0.4mg BID CONDITION: Stable. TIME SPENT: More than 30 minutes. Plan and coordination of the patient's care discussed in the presence of nurse. [place]
--- NOTE | 2021-11-16 09:31 | PN ---
DATE OF SERVICE: 11/14/21 SUBJECTIVE: 86 year old white male hospitalized with chest pain which was mainly because of reflux with hiatal hernia plus urinary retention which has resolved. The patient is stable enough to be discharged. The patient was seen and examined with the Nurse Practitioner. He is going to be discharged home on Flomax BID and also antireflux measures with Protonix twice a day. CONDITION: Stable; TIME SPENT: More than 30 minutes. Plan and coordination of the patient's care discussed in the presence of nurse. [place]
--- NOTE | 2021-11-16 09:32 | PN ---
11/10/21: Level 5 11/11/21: Intermediate 11/12/21: Intermediate 11/13/21: Intermediate 11/14/21: D as in discharge MTDD
--- NOTE | 2021-11-16 11:53 | PN ---
DATE OF SERVICE: 11/13/21 SUBJECTIVE: 86 year old white male hospitalized with chest pain likely from reflux disease and abdominal pain. The patient says that for the first time the last three days he has no problem after he eats. Usually get pain after he eats. Also his urinary retention has resolved and he peed on his own. REVIEW OF SYSTEMS: CONSTITUTIONAL: No night sweats. No fatigue, malaise, lethargy. No fever or chills. HEENT: Eyes: No visual changes. No eye pain. No eye discharge. ENT: No runny nose. No epistaxis. No sinus pain. No sore throat. No odynophagia. No congestion. RESPIRATORY: No cough, no congestion. No hemoptysis. No shortness of breath. CARDIOVASCULAR: No angina symptoms. No CHF symptoms. No atypical chest pain for CAD. No palpitations. No PND. No orthopnea. GASTROINTESTINAL: No abdominal pain. No nausea or vomiting. No diarrhea or constipation. No hematemesis. No hematochezia. GENITOURINARY: No urgency. No frequency. No dysuria. No hematuria. No obstructive symptoms. No discharge. No pain. No significant abnormal bleeding. MUSCULOSKELETAL: No musculoskeletal pain; no joint swelling. NEUROLOGICAL: No headache. No neck pain. No syncope. No seizures. No dizziness. PSYCHIATRIC: Not anxious. No depression. No suicidal thoughts. No homicidal thoughts. SKIN: No rash. No lesions. No wounds. ENDOCRINE: No unexplained weight loss. No weight gain. HEMATOLOGIC/LYMPHATIC: No anemia. No purpura. No petechiae. No prolonged or excessive bleeding. No palpable lymph nodes. PHYSICAL EXAMINATION: VITAL SIGNS: Temperature 97.8, pulse 60, respiratory rate 16, blood pressure 145/80 and pulse ox 97% HEENT: Head normocephalic, atraumatic. Eyes: Extraocular muscles are intact. Pupils are equal, round and reactive to light and accommodation. Ears: No lesions. Nose appeared normal. Throat: No exudate or erythema. NECK: Supple. No JVD, no carotid bruit. No lymphadenopathy or thyromegaly. LUNGS: Decreased breath sounds but clear to auscultation. Percussion note normal. Chest symmetrical. HEART: S1, S2, no S3. No murmurs. No cyanosis or clubbing. No ascites. Pulses: Dorsalis pedis and posterior tibial pulses +1 to +2 bilaterally. ABDOMEN: Soft. Nontender. Bowel sounds active. No CVA tenderness. No mass felt. EXTREMITIES: No edema. Full range of motion of all extremities, equal. NEUROLOGIC: No focal deficit. Cranial nerves II through XII are grossly intact. No headache. No double vision. SKIN: Not dry. Intact. Turgor - normal. LYMPHATIC: No palpable lymph nodes/no lymphedema. MUSCULOSKELETAL: Normal joints with no swelling. Muscle tone is normal. LABS: hgb 12.1, hct 36, WBC 4,600 normal differential, creatinine 0.8, BUN 14, potassium 4.3. ASSESSMENT: 1. Chest pain has resolved 2. Reflux disease symptoms has subsided 3. Huge hiatal hernia causing his problems 4. Urinary retention seems to have subsided with good urine output and no problem passing urine. PLAN: 1. The patient is on Flomax twice a day along with Finasteride TIME SPENT: More than 30 minutes. Plan and coordination of the patient's care discussed in the presence of nurse. [place]
--- NOTE | 2021-11-16 12:58 | PN ---
DATE OF SERVICE: 11/12/21 SUBJECTIVE: 86 year old white male hospitalized with chest pain likely from hiatal hernia. The epigastric pain also has subsided for last 24 hours after eating the patient doesn't have any chest pain or any discomfort. He is much better according to the patient. REVIEW OF SYSTEMS: CONSTITUTIONAL: No night sweats. No fatigue, malaise, lethargy. No fever or chills. HEENT: Eyes: No visual changes. No eye pain. No eye discharge. ENT: No runny nose. No epistaxis. No sinus pain. No sore throat. No odynophagia. No congestion. RESPIRATORY: No cough, no congestion. No hemoptysis. No shortness of breath. CARDIOVASCULAR: No angina symptoms. No CHF symptoms. No atypical chest pain for CAD. No palpitations. No PND. No orthopnea. GASTROINTESTINAL: No abdominal pain. No nausea or vomiting. No diarrhea or constipation. No hematemesis. No hematochezia. GENITOURINARY: No urgency. No frequency. No dysuria. No hematuria. No obstructive symptoms. No discharge. No pain. No significant abnormal bleeding. MUSCULOSKELETAL: No musculoskeletal pain; no joint swelling. NEUROLOGICAL: No headache. No neck pain. No syncope. No seizures. No dizziness. PSYCHIATRIC: Not anxious. No depression. No suicidal thoughts. No homicidal thoughts. SKIN: No rash. No lesions. No wounds. ENDOCRINE: No unexplained weight loss. No weight gain. HEMATOLOGIC/LYMPHATIC: No anemia. No purpura. No petechiae. No prolonged or excessive bleeding. No palpable lymph nodes. PHYSICAL EXAMINATION: VITAL SIGNS: Temperature 97.7, pulse 56, respiratory rate 20, blood pressure 146/78 and pulse ox 97%. HEENT: Head normocephalic, atraumatic. Eyes: Extraocular muscles are intact. Pupils are equal, round and reactive to light and accommodation. Ears: No lesions. Nose appeared normal. Throat: No exudate or erythema. NECK: Supple. No JVD, no carotid bruit. No lymphadenopathy or thyromegaly. LUNGS: Decreased breath sounds but clear to auscultation. Percussion note normal. Chest symmetrical. HEART: S1, S2, no S3. No murmurs. No cyanosis or clubbing. No ascites. Pulses: Dorsalis pedis and posterior tibial pulses +1 to +2 bilaterally. ABDOMEN: Soft. Nontender. Bowel sounds active. No CVA tenderness. No mass felt. EXTREMITIES: No edema. Full range of motion of all extremities, equal. NEUROLOGIC: No focal deficit. Cranial nerves II through XII are grossly intact. No headache. No double vision. SKIN: Not dry. Intact. Turgor - normal. LYMPHATIC: No palpable lymph nodes/no lymphedema. MUSCULOSKELETAL: Normal joints with no swelling. Muscle tone is normal. LABS: Hgb 11.5, hct 35, WBC 4,600 normal differential, creatinine 0.7, BUN 14, potassium 4.3. ASSESSMENT: 1. Chest pain subsided likely from hiatal hernia 2. Hiatal hernia with reflux doing a lot better with Protonix 3. Urinary retention seems to be much better and improving. 4. Mild Hydronephrosis PLAN: 1. The patient was explained about large hiatal hernia and advised to sleep upright if possible or little inclined. 2. We will discontinue Keene Catheter 3. We will increase the Flomax to twice a day TIME SPENT: More than 30 minutes. Plan and coordination of the patient's care discussed in the presence of nurse. [place]
== END 2021-11-14 11:40 | disposition home or self-care (01) | DRG 313 ==
LOC: ED 11:15 → MEDSURG A 14:16
PROVIDERS: ADMIT Internal Medicine; ATTEND Internal Medicine
DX: R07.9 Chest pain, unspecified; N13.30 Unspecified hydronephrosis; R33.8 Other retention of urine; K44.9 Diaphragmatic hernia without obstruction or gangrene; Z20.822 Contact with and (suspected) exposure to COVID-19; K86.9 Disease of pancreas, unspecified; Z51.81 Encounter for therapeutic drug level monitoring; K59.09 Other constipation; N40.1 Benign prostatic hyperplasia with lower urinary tract symptoms; K21.9 Gastro-esophageal reflux disease without esophagitis; Z79.899 Other long term (current) drug therapy